=== PATIENT | male | born 1980 | race Caucasian/White ===

== ENCOUNTER 2024-12-04 07:20 | Emergency (ER) | payer OTHER, SELFPAY ==
[2024-12-04 07:24] VITALS: BP 119/65; PULSE 86; RESP 18; TEMP 36.7; O2SAT 98; BMI 23.7
[2024-12-04 08:00] LABS: COVID-19 Test Negative (Negative); IDNOW Serial# 55D5AD1C
[2024-12-04 08:01] LABS: IDNOW Serial# 58CA691E; Influenza B2 Negative (Negative)
--- OUTSIDE RECORDS SUMMARY | 2024-12-04 08:06 | XMS_ITS | Clinical Summary ---
Author Organization [facility] Address [address] [place] [address] Care Team Providers Care General Milling Superintendent Name Role Phone Sol Newsome Primary Care Provider [phone] Allergies Active Allergy Reactions Criticality Noted Date Comments Fluoxetine Other (see comments) 11/20/2021 Caused pancreatis cysts Medications QUEtiapine (SEROquel) 100 mg tablet Take 150 mg by mouth. DAILY HS 0 7 Active prazosin (MINIPRESS) 2 mg capsule Take 2 mg by mouth daily. HS/ 1-2 capsules 0 7 Active traZODone (DESYREL) 100 mg tablet Take 100 mg by mouth daily. 1-2 tablets at bedtime 0 7 Active omeprazole (PriLOSEC) 20 mg capsule Take 20 mg by mouth 3 times a day before meals. 0 7 Active NICOTROL 10 mg inhaler Inhale 10 mg by mouth. PRN [address] (CYMBALTA) 60 mg capsule Take 60 mg by mouth 2 times a day. 0 7 Active busPIRone (BUSPAR) 30 mg tablet Take 30 mg by mouth 2 times a day. 0 7 Active nicotine (NICODERM CQ) 21 mg/[address] 1 patch on the skin daily. 0 7 Active docusate sodium (COLACE) 100 mg capsuleIndications: Constipation, unspecified constipation type Take 1 capsule (100 mg total) by mouth 2 times a day for 7 days. 14 capsule 7 Active senna (SENOKOT) 8.6 mg tabletIndications:C onstipation, unspecified constipation type Take 1 tablet (8.6 mg total) by mouth 2 times a day for 7 days. 14 tablet 7 Active ondansetron (ZOFRAN ODT) 4 mg disintegrating tabletIndications:A lcohol-induced chronic pancreatitis Dissolve 1 tablet (4 mg total) in the mouth every 8 hours as needed for nausea or vomiting. 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 His last bout was in 2015, and was complicated by pseudocyst formation for which he underwent endoscopic drainage with biliary stenting at [facility] and subsequent removal of the stent on 01/[address] Clancy at [facility]. He developed recurrence of his abdominal pain one week prior to admission, and presented to an outside hospital where he was found to have a 4 x 2 x [address] scan which was partially compressing the duodenal lumen. He was transferred to [facility] for evaluation of possible cyst gastrostomy. Repeat CT A/P at [facility] found decreased size of pseudocyst and resolution of peripancreatic fluids. EUS on 01/13 found evidence of severe pancreatitis. After EUS, patient was able to resume a regular diet and pain was controlled on oral Tramadol. Patient was discharged home with small amounts of Tramadol and ODT Zofran. Patient will follow up with Dr. Shelby in 2 months and establish care at the chronic pancreatitis clinic. Constipation 01/12/2017 Assessment & Plan (01/13/2017 4:05 PM EST): On 01/12, patient reported no BM x 5 days. He reported that he was on liquid diet while at OSH and since being transferred to [facility]. Patient reported passing gas and no SBO seen on CT. He will be discharged on Colace and Senna. 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 His last bout was in 2015 was complicated by pseudocyst formation for which he underwent endoscopic drainage with biliary stenting at [facility] and subsequent removal of the stent on 01/[address] Clancy at [facility]. He developed recurrence of his abdominal pain last week, and presented to an outside hospital where he was found to have a 4 x 2 x [address] scan which was partially compressing the duodenal lumen. He was transferred to [facility] for evaluation of possible cyst gastrostomy. Repeat CT A/P at [facility] found the cyst to be only 1.4 x 1.3 x 1.1 cm, and there was no peripancreatic fluid seen. EUS completed on 01/13, but no cystogastrostomy needed given decreased size of cyst. Patient will follow up with Dr. Shelby in 2 weeks. Anxiety 01/10/2017 Assessment & Plan (01/13/2017 4:04 PM EST): Patient with well-established PTSD with anxiety for which he is on disability. He is on multiple psychiatric medications at home including: Prazosin 2 mg nightly, buspirone 30 mg twice daily, Seroquel 150 mg nightly, Cymbalta 60 mg twice daily, trazodone 100-200 mg nightly as needed insomnia. He was continued on these during admission. Family History Medical History Relation Name Comments Melanoma Brother Breast cancer Maternal Grandmother Relation Name Status Comments Brother Maternal Grandmother Social History Tobacco Use Types Packs/Day Years Used Date Smoking Tobacco: Every Day Cigarettes 1 26 Smokeless Tobacco: Never Alcohol Use Standard Drinks/Week Comments Yes 0 (1 standard drink = 0.6 oz pure alcohol) former everyday drinker, now just socially Sex and Gender Information Value Date Recorded Sex Assigned at Not on file Legal Sex Male 7:16 PM EDT Gender Identity Not on file Sexual Orientation Not on file Occupation Industry Job Start Date Job End Date on disability Not on file Not on file Not on file Last Filed Vital Signs Vital Sign Reading Time Taken Comments Blood Pressure 135/97 11/21/2021 12:01 PM EDT Pulse 60 11/21/2021 12:01 PM EDT Temperature 37 C (98.6 F) 11/21/2021 12:01 PM EDT Respiratory Rate 18 11/21/2021 12:01 PM EDT Oxygen Saturation 99% 11/21/2021 12:01 PM EDT Inhaled Oxygen Concentration - - Weight 70.3 kg (155 lb) 11/21/2021 12:01 PM EDT Height 175.3 cm (5' 9 ) 11/21/2021 12:01 PM EDT Body Mass Index 22.89 11/21/2021 12:01 PM EDT Plan of Treatment Health Maintenance Due Date Last Done Comments HIV Screening 1981 Varicella Vaccines (1 of 2 - 13+ 2-dose series) 1994 Hepatitis B Vaccines (1 of 3 - 19+ 3-dose series) 01/22/2000 Alcohol/Substance Use Screening 03/10/2024 COVID-19 Vaccine (2 - 2024- season) 2024 10/08/2020 Influenza Vaccine (#1) 2024 , 01/30/2020, 12/18/2018, Additional history exists DTaP,Tdap,and Td Vaccines (2 - Td or Tdap) 08/15/2025 08/16/2015 RSV Vaccine (60+ years old and patients) (1 - 1-dose 75+ series) 01/22/2056 Pneumococcal Vaccine: Pediatric (0-5 Years) and At-Risk Patients (6-50 Years) Aged Out 07/12/2021, 10/08/2020, 06/28/2020 No longer eligible based on patient's age to complete this topic Insurance [facility] MEDICARE Advance Directives * Full Code (Latest Code Status on File) Date Activated Date Inactivated Comments 01/13/2017 1:51 PM 01/13/2017 7:08 PM * Full Code Date Activated Date Inactivated Comments 01/10/2017 7:32 PM 01/13/2017 1:51 PM Care Teams General Milling Superintendent Relationship Specialty Start Date End Date Sol Newsome [address] [place] [address] PCP - General 11/21/21
--- OUTSIDE RECORDS SUMMARY | 2024-12-04 08:06 | XMS_ITS | Clinical Summary ---
Author Organization [facility] Address [facility] [address] [place] [id number] Care Team Providers Care Potato Bucker Name Role Phone Sol Newsome APRN Primary Care Provider [phone] Allergies No known active allergies Medications * This document contains information received from the source organization and may not represent a complete record from that organization. famotidine (Pepcid) 20 mg tablet Take 1 tablet by mouth 2 times daily. 30 tablet 023 Active cholestyramine (Questran) 4 gram Powder in Packet Take 1 packet by mouth daily as needed. Mixed w/ water or non-carbonated drink 023 Active HYDROmorphone (Dilaudid) 2 mg tablet Take 2 mg by mouth 4 times daily as needed. Breakthrough pain 023 Active mirtazapine (Remeron) 15 mg tablet Take 15 mg by mouth nightly. 020 Active Micaela Pen Needle 32 gauge x 5/32 Needle Inject 1 each subcutaneously 4 times daily. W/ each insulin injection 023 Active prazosin (Minipress) 2 mg capsule Take 4 mg by mouth nightly. 023 Active sertraline (Zoloft) 100 mg tablet Take 150 mg by mouth daily. 023 Active zolpidem (Ambien) 10 mg tablet Take 10 mg by mouth nightly. 023 Active multivitamin (THERAGRAN) Tablet Take 1 tablet by mouth daily. Centrum generic Active insulin aspart U-100 (NovoLOG) 100 unit/mL (3 mL) Insulin Pen Inject subcutaneously 3 times daily (with meals). If BG is 80-150, inject 2 units w/ low carb meal, 3 w/ medium carb meal, 5 w/ high carb meal. An add'l 1 unit for every 30 BG over 150 Active ksqxna-jssnffrh-e mylase (Creon 24) 24,000-76,000 -120,[address] capsule Take 4 capsules by mouth 3 times daily (with meals). May have in addition 2 to 3 capsules with snacks. 60 capsule 023 Active Lantus Solostar U-100 Insulin 100 unit/mL (3 mL) pen Inject 16 Units subcutaneously nightly. 10 mL 023 Active Additional Information Patient taking differently: 24 UnitsSubcutaneous NIGHTLY, Reported on 07/11/2022 prochlorperazine (Compazine) [address] 1 suppository rectally every 8 hours as needed for Nausea. 20 suppository 023 Active ondansetron ODT (Zofran-ODT) 4 mg disintegrating tablet Take 1 tablet by mouth every 8 hours as needed for Nausea. 30 tablet 023 Active naloxone (Narcan) 1 mg/mL Syringe For opioid overdose,spray 1 mL in each nostril. Repeat after 3-5 minutes if no or minimal response. Call 911 before administration. 4 mL 023 Active Miscellaneous Medical Supply [facility] Script for two intranasal mucosal atomizing devices for use with naloxone syringe. 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 His last bout was in 2015, and was complicated by pseudocyst formation for which he underwent endoscopic drainage with biliary stenting at [facility] and subsequent removal of the stent on 01/[address] Clancy at [facility]. He developed recurrence of his abdominal pain one week prior to admission, and presented to an outside hospital where he was found to have a 4 x 2 x [address] scan which was partially compressing the duodenal lumen. He was transferred to [facility] for evaluation of possible cyst gastrostomy. Repeat CT A/P at [facility] found decreased size of pseudocyst and resolution [...] at the chronic pancreatitis clinic. Constipation 01/12/2017 Overview (07/11/2022): Last Assessment & Plan: On 01/12, patient reported no BM x 5 days. He reported that he was on liquid diet while at OSH and since being transferred to [facility]. Patient reported passing gas and no SBO seen on CT. He will be discharged on Colace and Senna. Anxiety 01/10/2017 Overview (07/11/2022): Last Assessment & Plan: Patient with well-established PTSD with anxiety for which he is on disability. He is on multiple psychiatric medications at home including: Prazosin 2 mg nightly, buspirone 30 mg twice daily, Seroquel 150 mg nightly, Cymbalta 60 mg twice daily, trazodone 100-200 mg nightly as needed insomnia. He was continued on these during admission. 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 His last bout was in 2015 was complicated by pseudocyst formation for which he underwent endoscopic drainage with biliary stenting at [facility] and subsequent removal of the stent on 01/[address] Clancy at [facility]. He developed recurrence of his abdominal pain last week, and presented to an outside hospital where he was found to have a 4 x 2 x [address] scan which was partially compressing the duodenal lumen. He was transferred to [facility] for evaluation of possible cyst gastrostomy. Repeat CT A/P at [facility] found the cyst to be only 1.4 x 1.3 x 1.1 cm, and there was no peripancreatic fluid seen. EUS completed on 01/13, but no cystogastrostomy needed given decreased size of cyst. Patient will follow up with Dr. Shelby in 2 weeks. Social History Tobacco Use Types Packs/Day Years Used Date Smoking Tobacco: Every Day Cigarettes Smokeless Tobacco: Never Tobacco Cessation:Ready to Q uit: Not Asked; Counseling Given: Not Answered Alcohol Use Standard Drinks/Week Comments Not Currently 0 (1 standard drink = 0.6 oz pur e alcohol) DH IPV Inpatient Questions Answer Date Recorded Does Anyone Try to Keep You From Having Contact with Others or Doing Things Outside Your Home? no 08/07/2022 Feels Threatened by Someone no 07/10 Feels Unsafe at Home or Work/School no 08/07/2022 Physical Signs of Abuse Present no 08/07/2022 Sex and Gender Information Value Date Recorded Sex Assigned at Not on file Legal Sex Male 11:12 AM EDT Gender Identity Not on file Sexual Orientation Not on file Last Filed Vital Signs Vital Sign Reading Time Taken Comments Blood Pressure 102/65 08/19/2022 8:40 AM EDT Pulse 74 08/19/2022 8:40 AM EDT Temperature 36.5 C (97.7 F) 08/18/2022 8:46 AM EDT Respiratory Rate 17 08/19/2022 8:40 AM EDT Oxygen Saturation 99% 08/19/2022 8:40 AM EDT Inhaled Oxygen Concentration - - Weight 74.4 kg (164 lb 0.4 oz) 08/08/2022 1:29 A M EDT Height 175.3 cm (5' 9 ) 08/08/2022 1:29 AM EDT Body Mass Index 24.22 08/08/2022 1:29 AM EDT Plan of Treatment Health Maintenance Due Date Last Done Comments HIV screen 1999 Hepatitis C Screening 1999 Lipid Screening 1999 Hepatitis B vaccine (0-59 yr s) and Risk (1) 01/22/2000 Pneumococcal Vaccine: At-Ris k 5-49yrs (1 of 2 - PCV) 01/22/2000 Tetanus/Diphtheria/Pertussis Vaccines (1 - Tdap) 01/22/2000 Covid-19 Vaccine (1 - 2023-2 5 season) 2024 Influenza (Flu) vaccine (1 o f 1 - Influenza standard series) 11/08/2024 Diabetes Screening (HgbA1C o r Glucose) Discontinued 08/12/2022, 08/12/2022, 08/07/2022, Additional history exists Procedures Procedure Name Priority Date/Time Associated Diagnosis Comments HEMOGLOBIN A1C Routine 08/12/2022 3:41 PM EDT from Last 3 Months or Most Recently Relevant to Health Maintenance Results * (ABNORMAL) Hemoglobin A1c (08/12/2022 3:41 PM EDT) Hemoglobin A1c 7.8(H) 4.3 - 5.6 % [facility] Estimated Average Glucose 177 mg/dL [facility] Blood 08/12/2022 3:41 PM EDT 08/12/2022 3:44 PM EDT Narrative Resulting Agency Comment Spec In Lab us Cordelia Paulino MD CHEMISTRY ORDERABLES Final Resu lt [facility] [address] [place] [address] from Last 3 Months or Most Recently Relevant to Health Maintenance Insurance MEDICARE [place]ICAID [place] Advance Directives * Attempt Cardiopulmonary Resuscitation - Inpatient (Latest Code Status on File) Date Activated Date Inactivated Comments 06/16/2022 10:22 PM 06/18/2022 4:16 PM Question Answer Comments Code Status decision made by: Patient Care Teams Potato Bucker Relationship Specialty Start Date End Date Sol Newsome APRN [address] [place] [id number] PCP - General Family Medicine 05/28/22
--- OUTSIDE RECORDS SUMMARY | 2024-12-04 08:07 | XMS_ITS | Encounter Summary ---
Author Organization [employer] Address [address] [facility] [address] [place] [address] Care Team Providers Care Wallpaper Scraper Name Role Phone Unavailable Primary Care Provider Unavailabl e Reason for Visit * Reason Onset Date Comments status on case at lab 11/24/2023 Encounter Details Date Type Department Care Team (Late st Contact Info) Description 11/24/2023 Telephone [facility] [address] [place], [place] [phone] Ricardo Reyna BDS [address] [place], [place] [phone] status on case at lab Social History Tobacco Use Types Packs/Day Years Used Date Smoking Tobacco: Every Day Cigarettes Smokeless Tobacco: Never Sex and Gender Information Value Date Recorded Sex Assigned at Male 05/23/2023 12:47 PM EDT Legal Sex Male 12:42 PM EDT Gender Identity Male 05/23/2023 12:47 PM EDT Sexual Orientation Choose not to disclose 2023 12:47 PM EDT documented as of this encounter Miscellaneous Notes * Telephone Encounter - Zully Escobedo - 11/26/2023 1:17 PM EDT This message was sent to Dr. Flaherty and addressed to him, Patient verifying status of case of back from lab Dr. Flaherty. * Telephone Encounter - Michael Kaplan DMD - 11/25/2023 7:56 AM EDT Please follow up with Dr. Flaherty * Telephone Encounter - Zully Escobedo - 11/24/2023 4:13 PM EDT Patient is checking in on the status of case at lab. Please reach out to patient documented in this encounter Plan of Treatment Not on file documented as of this encounter Visit Diagnoses Not on filedocumented in this encounter
--- OUTSIDE RECORDS SUMMARY | 2024-12-04 08:07 | XMS_ITS | Encounter Summary ---
Author Organization [employer] Address [address] [facility] [address] [place] [address] Care Team Providers Care Tool Distributor Name Role Phone Unavailable Primary Care Provider Unavailabl e Reason for Visit * Reason Onset Date Comments stictch removal 08/13/2023 Encounter Details Date Type Department Care Team (Late st Contact Info) Description 08/13/2023 Telephone [facility] [address] [place], [place] [phone] Ricardo Reyna BDS [address] [place], [place] [phone] stictch removal Social History Tobacco Use Types Packs/Day Years [...] * Telephone Encounter - Zully Escobedo - 08/13/2023 3:19 PM EDT Patient states that after his ext appt today he was told that he needs to come back on Friday to remove stitches. He is unsure if he is just walking in or if he needs to be scheduled. Can you pls reach out to patient to clarify. Email also sent to frontload driver documented in this encounter Plan of Treatment Not on file documented as of this encounter Visit Diagnoses Not on filedocumented in this encounter
--- OUTSIDE RECORDS SUMMARY | 2024-12-04 08:08 | XMS_ITS | Clinical Summary ---
Author Organization [facility] Address [address] [facility] [address] [place] [address] Care Team Providers Care Foot Worker Name Role Phone Unavailable Primary Care Provider Unavailabl e Allergies Active Allergy Reactions Criticality Noted Date Comments Varenicline 07/15/2023 Fluoxetine 07/15/2023 Medications ARIPiprazole (Abilify) 2 MG tablet Take 2 mg by mouth Once per day. 4 Active prazosin (Minipress) 1 MG capsule TAKE 1 CAPSULE BY MOUTH EVERY DAY IN THE MORNING 4 Active prazosin (Minipress) 5 MG capsule TAKE 1 CAPSULE BY MOUTH EVERYDAY AT BEDTIME 4 Active magnesium oxide (Mag-Ox) 400 MG tablet TAKE 2 TABS BY MOUTH AM AND 1 TAB BY MOUTH PM 4 Active ergocalciferol (Vitamin D2) 1.25 MG (87948 UT) capsule TAKE 2 CAPSULES (100,000) UNITS BY MOUTH ONCE WEEKLY 4 Active mirtazapine (Remeron) 15 MG tablet Take 15 mg by mouth at bedtime. Active Creon 73046-92516 units capsule TAKE 3 CAPSULES BY MOUTH 3 TIMES A DAY WITH MEALS Active Buprenorphine HCl-Naloxone HCl (Suboxone) 8-[address] 1 FILM EVERY DAY BY SUBLINGUAL ROUTE FOR 28 DAYS. 4 Active Fiasp FlexTouch 100 UNIT/ML injection UP TO 42 UNITS SUBCUTANEOUS TOTAL DAILY IN DIVIDED DOSES FOR MEALS AND HIGH SUGARS 4 Active Social History Tobacco Use Types Packs/Day Years Used Date Smoking Tobacco: Every Day Cigarettes Smokeless Tobacco: Never Tobacco Cessation:Ready to Q uit: Not Asked; Counseling Given: Not Answered Sex and Gender Information Value Date Recorded Sex Assigned at Male 05/23/2023 12:47 PM EDT Legal Sex Male 12:42 PM EDT Gender Identity Male 05/23/2023 12:47 PM EDT Sexual Orientation Choose not to disclose 2023 12:47 PM EDT Last Filed Vital Signs Vital Sign Reading Time Taken Comments Blood Pressure 118/68 11/25/2023 1:03 PM EDT Pulse 2 11/25/2023 1:03 PM EDT Temperature - - Respiratory Rate - - Oxygen Saturation - - Inhaled Oxygen Concentration - - Weight - - Height - - Body Mass Index - - Plan of Treatment Health Maintenance Due Date Last Done Comments Dental Prophylaxis 1981 Dental X-Ray: Bitewings 1981 Depression Screening 1981 HIV Screening 1981 Lipid Panel 1981 SDOH Screening 1981 Disability Screening 1981 Alcohol/Substance Use Screening 1993 Family Planning (PISQ) 01/22/1996 HPV Vaccines (1 - Male 3-dose series) 01/22/1996 Hepatitis C Screening 1999 Hepatitis B Vaccines (2 of 3 - 19+ 3-dose series) 07/26/2020 06/28/2020 Dental Oral Exam 01/16/2024 07/15/2023 COVID-19 Vaccine (3 - season) 2024 04/10/2021, 10/08/2020 Influenza Vaccine (#1) 2024 , 11/26/2022, 12/07/2021, Additional history exists Tobacco Screening 11/24/2024 11/25/2023 DTaP/Tdap/Td Vaccines (2 - Td or Tdap) 08/15/2025 08/16/2015 Dental X-Ray: Full Mouth 07/15/2026 07/15/2023 Pneumococcal Vaccine: Pediatrics (0 to 5 Years) and At-Risk Patients (6 to 49) Years (3 of 3 - PCV20 or PCV21) 2031 07/12/2021, 10/08/2020, 06/28/2020 Zoster Vaccines (1 of 2) 2031 RSV Patients and Patients Aged 60 years or older (1 - 1-dose 75+ series) 01/22/2056 HIB Vaccines Aged Out 10/05/2020 No longer eligi ble based on patient's age to complete this topic Meningococcal B Vaccine Aged Out 10/07/2020, 06/28 No longer eligible based on patient's age to complete this topic Meningococcal Vaccine Aged Out 10/07/2020, 021 No longer eligible based on patient's age to complete this topic Hepatitis A Vaccines Aged Out No long er eligible based on patient's age to complete this topic IPV Vaccines Aged Out No longer eligi ble based on patient's age to complete this topic RSV under 20 months Aged Out No longe r eligible based on patient's age to complete this topic Rotavirus Vaccines Aged Out No longer eligible based on patient's age to complete this topic Procedures Procedure Name Priority Date/Time Associated Diagnosis Comments PANORAMIC RADIOGRAPHIC IMAGE Routine 07/15/2023 1:00 PM EDT COMPREHENSIVE ORAL EVALUATION - NEW OR ESTABLISHED PATIENT Routine 07/15/2023 1:00 PM EDT from Last 3 Months or Most Recently Relevant to Health Maintenance Insurance [facility]
--- NOTE | 2024-12-04 09:02 | ED.URI ---
HPI - URI/Sore Throat General Chief Complaint: Upper Respiratory Symptoms Stated Complaint: congestion Time Seen by Provider: 12/04/24 07:48 Related Data Previous Rx's ?Medication ?Instructions ?Recorded amoxicillin 500 mg capsule 1,000 mg (2 x 500 mg) PO TID 5 12/04/24 days #30 caps doxycycline hyclate 100 mg tablet 100 mg PO Q12H 5 days #10 tabs 12/04/24 Allergies Allergy/AdvReac Type Severity Reaction Status Date / Time fluoxetine (From Prozac) AdvReac Stomach Verified 12/04/24 07:28 Upset varenicline (From Chantix) AdvReac Stomach Verified 12/04/24 07:28 Upset PMFSH Social History Social History Advance Directives: Yes Advance Directives Information Provided: No Advance Directives on File: No Physical Exam Vital Signs: Vital Signs: Last Vital Signs Temp 98.0 F 12/04/24 07:24 Pulse 86 12/04/24 07:24 Resp 18 12/04/24 07:24 BP 119/65 12/04/24 07:24 Pulse Ox 98 12/04/24 07:24 O2 Del Method Room Air 12/04/24 07:24 BMI result Body Mass Index 23.7 Medical Decision Making Lab Data Labs: Lab Results 12/04/24 Range/Units 07:33 COVID-19 (FREDRICK) Negative (Negative) COVID-19 Clin Com See Note Influenza Type A (HERMES) Negative (Negative) Influenza Type B (HERMES) Negative (Negative) Influenza A & B Note See Note Discharge Plan Discharge Clinical Impression: Upper respiratory infection, H/O splenectomy Patient Disposition: Home, Self-Care Instructions: Acute Bronchitis (ED) Additional Instructions: Your COVID 19 and influenza tests were negative. Your symptoms may be secondary to a viral infection in your body will fight this virus off in you will get better. However, I am also concerned that you may have a bacterial infection causing your symptoms. Given your splenectomy, I do want to treat you like you have early pneumonia with antibiotics. Take amoxicillin 500 mg pills, 2 pills, every 6 hours (3 times a day) for 5 days. Take doxycycline 100 mg, 1 pill every 12 hours for 5 days Take Benadryl (diphenhydramine) 25 mg pills, 2 pills 3 times a day as needed for nasal congestion-this medication will make you sleepy so try to take it at night. Take ibuprofen 200 mg pills, 2 pills every 6 hours as needed for pain or fever. Take Tylenol (acetaminophen) 500 mg pills, 2 pills every 6 hours as needed for pain or fever. Follow-up with your doctor in 2 days. Please return to the emergency department if your symptoms get worse or if you develop any symptoms that are concerning to you. Prescriptions: New amoxicillin 500 mg capsule 1,000 mg PO TID 5 Days Qty: 30 0RF doxycycline hyclate 100 mg tablet 100 mg PO Q12H 5 Days Qty: 10 0RF Print Language: Citizen Of [place]
[2024-12-04 09:32] VITALS: BP 125/63; PULSE 82; RESP 18; TEMP 36.7; O2SAT 98
== END 2024-12-04 09:32 | disposition home or self-care (01) ==
PROVIDERS: Emergency Provider Emergency Medicine Emergency Medical Services; PCP Nurse Practitioner Family
DX: J20.9 Acute bronchitis, unspecified (principal)
CPT/HCPCS: 87502; 87635; 99282; 99283

== ENCOUNTER 2025-01-17 00:37 | Emergency (ER) | payer OTHER, SELFPAY ==
--- NOTE | ~2025-01-17 | XR_ITS ---
EXAMINATION: XR CHEST CLINICAL INFORMATION: cough, chest pain COMPARISON: March 15, 2011 is not available on PACS. TECHNIQUE: PA and lateral views. FINDINGS: No consolidation, pleural effusion or pneumothorax. Mild pulmonary reticular pattern. Cardiomediastinal silhouette size is normal. Mild multilevel thoracic and lumbar spondylosis. XR/XR chest 2V IMPRESSION: No acute airspace disease. Chronic interstitial lung disease cannot be excluded. Electronically signed by: Osbaldo Bojorquez MD 01/17/2025 08:33 AM EST
--- NOTE | 2025-01-17 00:45 | ECG_ITS ---
Test Reason : DKA Blood Pressure : */* mmHG Vent. Rate : 107 BPM Atrial Rate : 107 BPM P-R Int : 160 ms QRS Dur : 86 ms QT Int : 358 ms P-R-T Axes : 30 12 35 degrees QTcB Int : 477 ms Sinus tachycardia Cannot rule out Anterior infarct , age undetermined Abnormal ECG No previous ECGs available Referred By: Generic ED Physician Electronically Signed By: THOMAS NEELY MD
[2025-01-17 00:48] VITALS: BP 138/89; PULSE 82; RESP 14; TEMP 36.6; O2SAT 99; BMI 29.3
[2025-01-17 01:00] LABS: Glucose, Whole Blood 517 mg/dL (60-115)
[2025-01-17 01:10] LABS: Venous Blood Gas Refer to POC result
[2025-01-17 01:12] LABS: Hematocrit 40.7 % (42.0-52.0); Hemoglobin 13.5 g/dl (14.0-18.0); Imm Gran Abs Auto 0.08 X10*3/uL (0.00-0.03); Imm Gran Pct Auto 0.4 % (0.0-0.4); Lymphocytes Absolute Auto 3.1 X10*3/uL (1.2-4.9); MANUAL DIFF FLAG SCAN; Mean Corpuscular HGB Conc 33.2 g/dl (31.0-36.0); Mean Corpuscular Hemoglobin 30.2 pg (27.0-33.0); Mean Corpuscular Volume 91.1 fL (80.0-98.0); NRBC Abs Auto 0.000 X10*3/uL (0.0-0.012); NRBC Pct Auto 0.0 /100WBC (0.0-0.2); Platelet Count 254 X10*3/uL (160-400); Red Blood Count 4.47 X10*6/uL (4.60-5.80); SCAN SMEAR FLAG 1; White Blood Count 18.7 X10*3/uL (4.8-10.8)
[2025-01-17 01:30] LABS: Alanine Aminotransferase 29 U/L (0-40); Albumin Level 4.5 g/dL (3.5-5.0); Alkaline Phosphatase 105 U/L (39-117); Anion Gap 23 (12-20); Aspartate Amino Transferase 43 U/L (5-37); Blood Urea Nitrogen 13 mg/dL (9-16); Calcium 10.7 mg/dL (8.4-10.2); Carbon Dioxide 20 mmol/L (22-29); Chloride 97 mmol/L (96-108); Creatinine Clr Calc Pharmacy 91.9; Estimated Glomerular Filt Rate > 60; Magnesium 1.6 mg/dL (1.6-2.6); Potassium 4.7 mmol/L (3.3-5.1); Sodium 135 mmol/L (135-145); Total Protein 8.0 g/dL (6.5-8.0)
[2025-01-17 01:32] LABS: VBG HCO3 21 mmol/L (22-26); VBG O2 % Saturation 94.0 %
[2025-01-17 01:33] LABS: Troponin-I High Sensitivity < 2.7 ng/L (<3.5-35.0)
[2025-01-17 02:03] LABS: Glucose, Whole Blood 499 mg/dL (60-115)
[2025-01-17 02:06] LABS: Appearance Urine Clear; Glucose Urine UA >=1000 mg/dL (Negative); PH 5.5 (5.0-9.0); Specific Gravity - Urine >= 1.030 (1.005-1.025); UMIC TRIGGER UACC YES
[2025-01-17 02:49] LABS: Anion Gap 25 (12-20); Blood Urea Nitrogen 13 mg/dL (9-16); Calcium 10.5 mg/dL (8.4-10.2); Carbon Dioxide 18 mmol/L (22-29); Chloride 98 mmol/L (96-108); Creatinine Clr Calc Pharmacy 94.3; Estimated Glomerular Filt Rate > 60; Potassium 4.5 mmol/L (3.3-5.1); Sodium 136 mmol/L (135-145)
[2025-01-17 02:56] LABS: Glucose, Whole Blood 483 mg/dL (60-115)
[2025-01-17] MEDS: Insulin Regular/NS 100 UNIT/100 ML PLAST..BAG 9 UNIT IVCONT (02:56)
[2025-01-17 03:06] VITALS: BP 122/72; PULSE 80; RESP 18; RESP 22; O2SAT 97
[2025-01-17] MEDS: Magnesium Sulfate/H2O 2 GM/50 ML PIGGYBACK IV (03:43)
[2025-01-17 04:07] LABS: Glucose, Whole Blood 295 mg/dL (60-115)
--- NOTE | 2025-01-17 04:09 | PC.NURSE ---
bg dropped to 290. Infusion decreased by 50% as per protocol. Verified and co-signed by JAREN Colunga
[2025-01-17 05:03] LABS: Glucose, Whole Blood 194 mg/dL (60-115)
--- NOTE | 2025-01-17 05:11 | PC.NURSE ---
BG decreased >100, 295 to 194. infusion decreased by 50%- 2.25mls/hr.
[2025-01-17 06:07] LABS: Anion Gap 17 (12-20); Blood Urea Nitrogen 12 mg/dL (9-16); COVID-19 Test Negative (Negative); Calcium 10.0 mg/dL (8.4-10.2); Carbon Dioxide 21 mmol/L (22-29); Chloride 107 mmol/L (96-108); Creatinine Clr Calc Pharmacy 105.7; Estimated Glomerular Filt Rate > 60; IDNOW Serial# 55D5AD1C; IDNOW Serial# 58CA691E; Influenza B2 Negative (Negative); Potassium 4.3 mmol/L (3.3-5.1); Sodium 141 mmol/L (135-145)
[2025-01-17 06:29] LABS: Glucose, Whole Blood 109 mg/dL (60-115)
--- NOTE | 2025-01-17 06:59 | ED.NAVMDI ---
HPI - Nausea/Vomiting/Diarrhea General Chief complaint: Nausea/Vomiting/Diarrhea Stated complaint: N/V, BS 487 PER EMS Time Seen by Provider: 01/17/25 01:31 Source: patient, EMS, RN notes reviewed and old records reviewed Mode of arrival: EMS Limitations: no limitations History of Present Illness ED Provider: Dr. Eileen Martins HPI Narrative: 44-year-old male with a history of insulin-dependent diabetes, status post splenectomy and pancreatectomy presenting with epigastric abdominal pain, nausea and vomiting ongoing since about 8 p.m. yesterday. Describes elevated blood sugars greater than 500 which is unusual for him. He does have an insulin pump and has been using it appropriately. Feels as though he has been unable to get his blood sugar controlled over the last 24 hours. No reported fever though he admits he rarely gets a fever after splenectomy. Denies hematochezia, hematemesis, dysuria or hematuria, testicular pain or swelling. No skin changes. Admits to a cough that is productive of yellow sputum which has been ongoing for the last several weeks, lingering after he was treated for pneumonia about 5 weeks ago. Related Data Previous Rx's ?Medication ?Instructions ?Recorded amoxicillin 500 mg capsule 1,000 mg (2 x 500 mg) PO TID 5 12/04/24 days #30 caps doxycycline hyclate 100 mg tablet 100 mg PO Q12H 5 days #10 tabs 12/04/24 amoxicillin 875 mg-potassium 1 tab PO BID 10 days #20 tabs 01/17/25 clavulanate 125 mg tablet dicyclomine 20 mg tablet 20 mg PO TID #10 tabs 01/17/25 doxycycline monohydrate 100 mg 100 mg PO BID 10 days #20 caps 01/17/25 capsule ondansetron 4 mg disintegrating 4 mg PO Q8H PRN nausea and 01/17/25 tablet vomiting #10 tabs Allergies Allergy/AdvReac Type Severity Reaction Status Date / Time fluoxetine (From Prozac) AdvReac Stomach Verified 01/17/25 00:50 Upset varenicline (From Chantix) AdvReac Stomach Verified 01/17/25 00:50 Upset Review of Systems Review of Systems: as per HPI, full review of systems performed and negative but for the above mentioned pertinent positives and negatives. [facility] Social History Social History Smoked in Last 30 Days: No Use of substances other than those prescribed or required for medical reasons: Yes Substance Use Type: Marijuana Advance Directives: No Advance Directives Information Provided: No Do you have a plan to hurt others: No Plan Physical Exam Exam: Exam: GENERAL: Ill-Appearing, appears uncomfortable. SKIN: Normal skin color for ethnicity, warm, dry, no rashes noted. HEENT:? Normocephalic, atraumatic, no stridor, dry mucous membranes, dentition intact, EOMI. NECK: Soft, supple, full ROM, midline structures nontender, no step-offs, no deformities, no lymphadenopathy. CHEST: Heart regular tachycardia, no murmurs, symmetric chest rise and fall. PULMONARY: Clear to auscultation bilaterally, diminished at the bases, no labored breathing, no wheezes/rhales/rhonchi. ABDOMINAL: Soft, nondistended, epigastric tenderness to palpation without rebound or guarding, positive bowel sounds in all quadrants. : Deferred. MUSCULOSKELETAL: Normal tone, full range of motion, no deformities, no peripheral edema. NEURO: Alert and oriented x3, CN II through XII intact, equal strength and sensation bilateral upper and lower extremities, no focal neurologic deficits.? PSYCHIATRIC: Flat affect, fluid speech, good eye contact and appropriate demeanor. Vital Signs: Vital Signs: Last Vital Signs Temp 97.8 F 01/17/25 00:48 Pulse 88 01/17/25 07:56 Resp 16 01/17/25 07:56 BP 115/57 L 01/17/25 07:56 Pulse Ox 95 01/17/25 07:56 O2 Del Method Room Air 01/17/25 07:56 BMI result Body Mass Index 29.3 Medications Administered Discontinued Medications Generic Name Dose Route Start Last Admin Trade Name Freq PRN Reason Stop Dose Admin Haloperidol Lactate 2.5 mg 01/17/25 03:31 01/17/25 03:42 Haloperidol Lactate 5 Mg/Ml Vial IVPUSH 01/17/25 03:32 2.5 mg STAT STA Administration Hydromorphone HCl 1 mg 01/17/25 03:31 01/17/25 03:42 Hydromorphone Hcl 1 Mg/Ml Syringe IVPUSH 01/17/25 03:32 1 mg ONCE ONE Administration Protocol Sodium Chloride 1,000 mls @ 999 mls/hr 01/17/25 01:30 01/17/25 03:43 Ns IV 01/17/25 03:30 Infused .Q1H1M OIRON Infusion Lactated Ringer's 1,000 mls @ 999 mls/hr 01/17/25 01:36 01/17/25 02:56 Lr IV 01/17/25 02:36 Not Given .Q1H1M ONE Magnesium Sulfate 2 gm in 50 mls @ 25 mls/hr 01/17/25 01:36 01/17/25 04:50 Magnesium Sulfate/H2o IV 01/17/25 03:35 Infused ONCE ONE Infusion Insulin Human Regular 100 unit in 100 mls @ 9 mls/hr 01/17/25 01:45 01/17/25 07:39 Myxredlin IVCONT Infused .Q11H7M ORION Titration Protocol 9 UNIT/HR Morphine Sulfate 4 mg 01/17/25 01:17 01/17/25 01:37 Morphine Sulfate 4 Mg/Ml Cartridge IVPUSH 01/17/25 01:18 4 mg ONCE ONE Administration Protocol Ondansetron HCl 4 mg 01/17/25 01:17 01/17/25 01:38 Ondansetron Hcl 4 Mg/2 Ml Vial IVPUSH 01/17/25 01:18 4 mg ONCE ONE Administration Medical Decision Making Medical Decision Making MDM Narrative: Patient presents today with a chief complaint of vomiting. Differential diagnosis includes surgical emergency such as obstruction or enteritis, as well as hyperglycemia/DKA, acidosis, food or drug ingestion, pancreatitis, CVA, allergic reaction such as anaphylaxis, cannabis hyperemesis syndrome or cyclic vomiting syndrome, among many others. Patient is not showing signs of acute dehydration or hemodynamic instability. They are having associated abdominal pain. Blood sugars are significantly elevated, suggesting potential DKA with this type 1 diabetic. Broad-based work-up was initiated based on above history and physical exam. PH is 7.44, pCO2 of 30. Metabolic acidosis with respiratory compensation. He has a slightly elevated beta hydroxybutyrate and an anion gap of 23. We will initiate insulin drip for DKA protocol. Medicated with Zofran and morphine initially, patient continues to have nausea and vomiting as well as epigastric abdominal pain. We will medicate with Haldol, Dilaudid, further any fluids. Magnesium is significantly decreased. Repleted IV. Patient reports improvement of nausea and vomiting after Dilaudid and Haldol. His blood sugar has dropped precipitously. Awaiting repeat chemistries. He has a continuous glucose monitor and reports a blood sugar in the 150s now. Patient's gap has closed, electrolytes remained stable. Patient is tolerating oral intake here in the emergency department without issue. He did mention that his cough has been lingering and he is worried that he might have continued pneumonia. Given his significant history, elevation of his white blood cell count which I initially had contributed to volume contraction with his vomiting and demargination, however, we will add on a chest x-ray to evaluate for this further. He is otherwise significantly improved and feeling much better. COVID and flu swabs are negative. Urinalysis does not show evidence of infection. Chest x-ray does not show significant infiltrate however, given the patient's asplenia, elevated white blood cell count, we will treat as pneumonia. Given Augmentin and doxycycline. Provided with a prescriptions for same at home. We had an extensive discussion regarding strict return precautions, low threshold for return with worsening symptoms, follow up with outpatient primary care and endocrinology. Patient understands and agrees with plan for discharge. Discharged home in stable and improved condition. Differential Diagnosis Differential Diagnoses: The differential diagnosis associated with the presentation includes (As above) Admission/Observation Consideration of admission/observation: Escalation of care including admission/observation considered Lab Data MDM Lab Attestation statement: I reviewed the patient's lab results. 01/17/25 01:05 01/17/25 05:46 Labs: Lab Results 01/17/25 01/17/25 01/17/25 Range/Units 00:45 01:05 01:10 WBC 18.7 H (4.8-10.8) X10*3/uL RBC 4.47 L (4.60-5.80) X10*6/uL Hgb 13.5 L (14.0-18.0) g/dl Hct 40.7 L (42.0-52.0) % MCV 91.1 (80.0-98.0) fL MCH 30.2 (27.0-33.0) pg MCHC 33.2 (31.0-36.0) g/dl RDW 13.3 (11.0-16.0) % Plt Count 254 (160-400) X10*3/uL MPV 10.3 (9.4-12.4) fL Immature Gran % (Auto) 0.4 (0.0-0.4) % Neut % (Auto) 73.7 H (45-73) % Lymph % (Auto) 16.5 L (20-40) % [place] % (Auto) 8.3 (2-11) % Eos % (Auto) 0.6 (0-4) % Baso % (Auto) 0.5 (0-2) % Lymph # (Auto) 3.1 (1.2-4.9) X10*3/uL [place] # (Auto) 1.5 H (0.1-1.2) X10*3/uL Eos # (Auto) 0.1 (0.0-0.4) X10*3/uL Baso # (Auto) 0.1 (0.0-0.2) X10*3/uL Abs Immat Gran (auto) 0.08 H (0.00-0.03) X10*3/uL Absolute Neuts (auto) 13.8 H (2.0-8.3) x10*3/uL Absolute Nucleated RBC 0.000 (0.0-0.012) X10*3/uL Nucleated RBC % (auto) 0.0 (0.0-0.2) /100WBC Smear Tech's Comments VERIFIED VBG pH 7.44 H (7.32-7.43) VBG pCO2 30 mmHg VBG pO2 65 mmHg VBG HCO3 21 L (22-26) mmol/L VBG O2 Saturation 94.0 % VBG Base Excess -1.8 mmol/L Sodium 135 (135-145) mmol/L Potassium 4.7 (3.3-5.1) mmol/L Chloride 97 (96-108) mmol/L Carbon Dioxide 20 L (22-29) mmol/L Anion Gap 23 H (12-20) BUN 13 (9-16) mg/dL Creatinine 1.15 (0.5-1.4) mg/dL Estim Creat Clear Calc 91.9 Estimated GFR > 60 POC Glucose 517 H* (60-115) mg/dL Random Glucose 536 H* (60-115) mg/dL Calcium 10.7 H (8.4-10.2) mg/dL Magnesium 1.6 (1.6-2.6) mg/dL Total Bilirubin 0.7 (0.0-1.0) mg/dL AST 43 H (5-37) U/L ALT 29 (0-40) U/L Alkaline Phosphatase 105 (39-117) U/L Troponin I High Sens < 2.7 (<3.5-35.0) ng/L Total Protein 8.0 (6.5-8.0) g/dL Albumin 4.5 (3.5-5.0) g/dL Beta-Hydroxybutyrate 0.42 H (0.02-0.27) mmol/L Urine Color Urine Appearance Urine pH (5.0-9.0) Ur Specific [place] (1.005-1.025) Urine Protein (Neg-Trace) mg/dL Urine Glucose (UA) (Negative) mg/dL Urine Ketones (Negative) mg/dL Urine Blood (Negative) Urine Nitrite (Negative) Ur Leukocyte Esterase (Negative) Urine RBC (0-2) /HPF Urine WBC (0-5) /HPF Ur Squamous Epith Cells (0-2) /HPF Urine Bacteria (None Seen) Hyaline Casts (0-2) /LPF COVID-19 (FREDRICK) (Negative) COVID-19 Clin Com Influenza Type A (HERMES) (Negative) Influenza Type B (HERMES) (Negative) Influenza A & B Note 01/17/25 01/17/25 01/17/25 Range/Units 01:48 01:57 02:52 WBC (4.8-10.8) X10*3/uL RBC (4.60-5.80) X10*6/uL Hgb (14.0-18.0) g/dl Hct (42.0-52.0) % MCV (80.0-98.0) fL MCH (27.0-33.0) pg MCHC (31.0-36.0) g/dl RDW (11.0-16.0) % Plt Count (160-400) X10*3/uL MPV (9.4-12.4) fL Immature Gran % (Auto) (0.0-0.4) % Neut % (Auto) (45-73) % Lymph % (Auto) (20-40) % [place] % (Auto) (2-11) % Eos % (Auto) (0-4) % Baso % (Auto) (0-2) % Lymph # (Auto) (1.2-4.9) X10*3/uL [place] # (Auto) (0.1-1.2) X10*3/uL Eos # (Auto) (0.0-0.4) X10*3/uL Baso # (Auto) (0.0-0.2) X10*3/uL Abs Immat Gran (auto) (0.00-0.03) X10*3/uL Absolute Neuts (auto) (2.0-8.3) x10*3/uL Absolute Nucleated RBC (0.0-0.012) X10*3/uL Nucleated RBC % (auto) (0.0-0.2) /100WBC Smear Tech's Comments VBG pH (7.32-7.43) VBG pCO2 mmHg VBG pO2 mmHg VBG HCO3 (22-26) mmol/L VBG O2 Saturation % VBG Base Excess mmol/L Sodium 136 (135-145) mmol/L Potassium 4.5 (3.3-5.1) mmol/L Chloride 98 (96-108) mmol/L Carbon Dioxide 18 L (22-29) mmol/L Anion Gap 25 H (12-20) BUN 13 (9-16) mg/dL Creatinine 1.12 (0.5-1.4) mg/dL Estim Creat Clear Calc 94.3 Estimated GFR > 60 POC Glucose 499 H* 483 H* (60-115) mg/dL Random Glucose 510 H* (60-115) mg/dL Calcium 10.5 H (8.4-10.2) mg/dL Magnesium (1.6-2.6) mg/dL Total Bilirubin (0.0-1.0) mg/dL AST (5-37) U/L ALT (0-40) U/L Alkaline Phosphatase (39-117) U/L Troponin I High Sens (<3.5-35.0) ng/L Total Protein (6.5-8.0) g/dL Albumin (3.5-5.0) g/dL Beta-Hydroxybutyrate (0.02-0.27) mmol/L Urine Color Yellow Urine Appearance Clear Urine pH 5.5 (5.0-9.0) Ur Specific [place] >= 1.030 H (1.005-1.025) Urine Protein Negative (Neg-Trace) mg/dL Urine Glucose (UA) >=1000 H (Negative) mg/dL Urine Ketones Trace (Negative) mg/dL Urine Blood Negative (Negative) Urine Nitrite Negative (Negative) Ur Leukocyte Esterase Negative (Negative) Urine RBC 0-2 (0-2) /HPF Urine WBC 0-5 (0-5) /HPF Ur Squamous Epith Cells 0-2 (0-2) /HPF Urine Bacteria None Seen (None Seen) Hyaline Casts 0-2 (0-2) /LPF COVID-19 (FREDRICK) (Negative) COVID-19 Clin Com Influenza Type A (HERMES) (Negative) Influenza Type B (HERMES) (Negative) Influenza A & B Note 01/17/25 01/17/25 01/17/25 Range/Units 04:03 04:59 05:46 WBC (4.8-10.8) X10*3/uL RBC (4.60-5.80) X10*6/uL Hgb (14.0-18.0) g/dl Hct (42.0-52.0) % MCV (80.0-98.0) fL MCH (27.0-33.0) pg MCHC (31.0-36.0) g/dl RDW (11.0-16.0) % Plt Count (160-400) X10*3/uL MPV (9.4-12.4) fL Immature Gran % (Auto) (0.0-0.4) % Neut % (Auto) (45-73) % Lymph % (Auto) (20-40) % [place] % (Auto) (2-11) % Eos % (Auto) (0-4) % Baso % (Auto) (0-2) % Lymph # (Auto) (1.2-4.9) X10*3/uL [place] # (Auto) (0.1-1.2) X10*3/uL Eos # (Auto) (0.0-0.4) X10*3/uL Baso # (Auto) (0.0-0.2) X10*3/uL Abs Immat Gran (auto) (0.00-0.03) X10*3/uL Absolute Neuts (auto) (2.0-8.3) x10*3/uL Absolute Nucleated RBC (0.0-0.012) X10*3/uL Nucleated RBC % (auto) (0.0-0.2) /100WBC Smear Tech's Comments VBG pH (7.32-7.43) VBG pCO2 mmHg VBG pO2 mmHg VBG HCO3 (22-26) mmol/L VBG O2 Saturation % VBG Base Excess mmol/L Sodium 141 (135-145) mmol/L Potassium 4.3 (3.3-5.1) mmol/L Chloride 107 (96-108) mmol/L Carbon Dioxide 21 L (22-29) mmol/L Anion Gap 17 (12-20) BUN 12 (9-16) mg/dL Creatinine 1.00 (0.5-1.4) mg/dL Estim Creat Clear Calc 105.7 Estimated GFR > 60 POC Glucose 295 H 194 H (60-115) mg/dL Random Glucose 151 H (60-115) mg/dL Calcium 10.0 (8.4-10.2) mg/dL Magnesium (1.6-2.6) mg/dL Total Bilirubin (0.0-1.0) mg/dL AST (5-37) U/L ALT (0-40) U/L Alkaline Phosphatase (39-117) U/L Troponin I High Sens (<3.5-35.0) ng/L Total Protein (6.5-8.0) g/dL Albumin (3.5-5.0) g/dL Beta-Hydroxybutyrate (0.02-0.27) mmol/L Urine Color Urine Appearance Urine pH (5.0-9.0) Ur Specific [place] (1.005-1.025) Urine Protein (Neg-Trace) mg/dL Urine Glucose (UA) (Negative) mg/dL Urine Ketones (Negative) mg/dL Urine Blood (Negative) Urine Nitrite (Negative) Ur Leukocyte Esterase (Negative) Urine RBC (0-2) /HPF Urine WBC (0-5) /HPF Ur Squamous Epith Cells (0-2) /HPF Urine Bacteria (None Seen) Hyaline Casts (0-2) /LPF COVID-19 (FREDRICK) Negative (Negative) COVID-19 Clin Com See Note Influenza Type A (HERMES) Negative (Negative) Influenza Type B (HERMES) Negative (Negative) Influenza A & B Note See Note 01/17/25 01/17/25 Range/Units 06:26 07:51 WBC (4.8-10.8) X10*3/uL RBC (4.60-5.80) X10*6/uL Hgb (14.0-18.0) g/dl Hct (42.0-52.0) % MCV (80.0-98.0) fL MCH (27.0-33.0) pg MCHC (31.0-36.0) g/dl RDW (11.0-16.0) % Plt Count (160-400) X10*3/uL MPV (9.4-12.4) fL Immature Gran % (Auto) (0.0-0.4) % Neut % (Auto) (45-73) % Lymph % (Auto) (20-40) % [place] % (Auto) (2-11) % Eos % (Auto) (0-4) % Baso % (Auto) (0-2) % Lymph # (Auto) (1.2-4.9) X10*3/uL [place] # (Auto) (0.1-1.2) X10*3/uL Eos # (Auto) (0.0-0.4) X10*3/uL Baso # (Auto) (0.0-0.2) X10*3/uL Abs Immat Gran (auto) (0.00-0.03) X10*3/uL Absolute Neuts (auto) (2.0-8.3) x10*3/uL Absolute Nucleated RBC (0.0-0.012) X10*3/uL Nucleated RBC % (auto) (0.0-0.2) /100WBC Smear Tech's Comments VBG pH (7.32-7.43) VBG pCO2 mmHg VBG pO2 mmHg VBG HCO3 (22-26) mmol/L VBG O2 Saturation % VBG Base Excess mmol/L Sodium (135-145) mmol/L Potassium (3.3-5.1) mmol/L Chloride (96-108) mmol/L Carbon Dioxide (22-29) mmol/L Anion Gap (12-20) BUN (9-16) mg/dL Creatinine (0.5-1.4) mg/dL Estim Creat Clear Calc Estimated GFR POC Glucose 109 280 H (60-115) mg/dL Random Glucose (60-115) mg/dL Calcium (8.4-10.2) mg/dL Magnesium (1.6-2.6) mg/dL Total Bilirubin (0.0-1.0) mg/dL AST (5-37) U/L ALT (0-40) U/L Alkaline Phosphatase (39-117) U/L Troponin I High Sens (<3.5-35.0) ng/L Total Protein (6.5-8.0) g/dL Albumin (3.5-5.0) g/dL Beta-Hydroxybutyrate (0.02-0.27) mmol/L Urine Color Urine Appearance Urine pH (5.0-9.0) Ur Specific [place] (1.005-1.025) Urine Protein (Neg-Trace) mg/dL Urine Glucose (UA) (Negative) mg/dL Urine Ketones (Negative) mg/dL Urine Blood (Negative) Urine Nitrite (Negative) Ur Leukocyte Esterase (Negative) Urine RBC (0-2) /HPF Urine WBC (0-5) /HPF Ur Squamous Epith Cells (0-2) /HPF Urine Bacteria (None Seen) Hyaline Casts (0-2) /LPF COVID-19 (FREDRICK) (Negative) COVID-19 Clin Com Influenza Type A (HERMES) (Negative) Influenza Type B (HERMES) (Negative) Influenza A & B Note ABG Data Attestation ABG: I personally reviewed and interpreted this ABG as follows: Interpretation: Metabolic acidosis with respiratory compensation, pH 7.44 Independent Interpretation I performed an independent interpretation of an: EKG Interpretation: My independent interpretation of the ECG reveals normal sinus tachycardia with rate of 107, normal axis, normal intervals, no ST elevations or depressions to suggest ischemic changes, no previous for comparison. Radiology Impression Discussion of test interpretation with radiology: I have reviewed the radiologist's reading. Independent Historian Clinical information obtained from an independent historian. History obtained from or confirmed by: EMS External Record Review External record reviewed: Inpatient record Prescription Management I considered prescription management with: Pain Medication, Antibiotic and Other (Antiemetics) Chronic Conditions Patient?s care impacted by: Diabetes and Other (Prior splenectomy) Social Determinants Patient?s care significantly limited by Social Determinants of Health including: Other Social Determinant of Health Critical Care Time Critical Care Time Critical Care Time: Yes Total Critical Care Time: 55 Attestation: CRITICAL CARE TIME: 55 minutes of critical care time was spent in direct patient care at the bedside or in the immediate area with this patient. Critical care was necessary to treat or prevent imminent or life-threatening deterioration of the following conditions diabetic ketoacidosis, acute abdominal pain, nausea, vomiting and hypomagnesemia due to suspected infectious process in the setting asplenia and insulin-dependent diabetes. This patient is high risk for decompensation and/or . This time was spent assessing and managing the patient, interpreting labs and imaging, coordinating care with other medical providers, gathering history from either the patient, their representatives, EMS or chart review, and discussing management with RN, patient. Discharge Plan Discharge Clinical Impression: DKA (diabetic ketoacidosis), Hypomagnesemia, Acute nausea with nonbilious vomiting, Community acquired pneumonia, Asplenia Patient Disposition: Home, Self-Care Instructions: Diabetic Ketoacidosis (DC), Community Acquired Pneumonia (ED) Additional Instructions: Take your antibiotic as prescribed until the course is completed. Do not stop this medication early if you start to feel better. Return to the emergency department with any new or worsening symptoms including: Worsening pain, fevers greater than 100? despite antibiotic treatment, worsening vomiting, or any new symptom that concerns you. Call 911 with any medical emergency. Follow up with your primary care doctor as soon as possible. Prescriptions: New dicyclomine 20 mg tablet 20 mg PO TID Qty: 10 0RF doxycycline monohydrate 100 mg capsule 100 mg PO BID 10 Days Qty: 20 0RF ondansetron 4 mg tablet,disintegrating 4 mg PO Q8H PRN (Reason: nausea and vomiting) Qty: 10 0RF amoxicillin-pot clavulanate 875-125 mg tablet 1 tab PO BID 10 Days Qty: 20 0RF No Action amoxicillin 500 mg capsule 1,000 mg PO TID 5 Days Qty: 30 0RF doxycycline hyclate 100 mg tablet 100 mg PO Q12H 5 Days Qty: 10 0RF Print Language: Kinyarwanda
[2025-01-17 07:56] VITALS: BP 115/57; PULSE 88; RESP 16; O2SAT 95
[2025-01-17 07:58] LABS: Glucose, Whole Blood 280 mg/dL (60-115)
[2025-01-17 08:26] VITALS: BP 115/57; PULSE 88; RESP 16; TEMP 36.1; O2SAT 95
== END 2025-01-17 08:26 | disposition home or self-care (01) ==
PROVIDERS: Emergency Provider Emergency Medicine
DX: E11.10 Type 2 diabetes mellitus with ketoacidosis without coma (principal); E83.42 Hypomagnesemia; R11.2 Nausea with vomiting, unspecified; R19.7 Diarrhea, unspecified; J18.9 Pneumonia, unspecified organism; Q89.01 Asplenia (congenital); Z03.818 Encounter for observation for suspected exposure to other biological agents ruled out; R00.0 Tachycardia, unspecified; R05.9 Cough, unspecified; R07.9 Chest pain, unspecified; Z79.4 Long term (current) use of insulin; Z98.890 Other specified postprocedural states
CPT/HCPCS: 36415; 71046; 80048; 80053; 81001; 82010; 82803; 82947; 83735; 84484; 85025; 87502; 87635; 93005; 96361; 96365; 96366; 96375; 99285; 99291; J1171; J1630; J2270; J2405; J3475

== ENCOUNTER → 2025-01-17 00:45 | Outpatient (BNV) | payer OTHER, SELFPAY | PROVIDERS: Emergency Provider Emergency Medicine; Visit Provider Internal Medicine Cardiovascular Disease | DX: R00.0 Tachycardia, unspecified (principal) | CPT/HCPCS: 93010 ==

== ENCOUNTER → 2025-01-17 06:54 | Outpatient (BNV) | payer OTHER, SELFPAY | PROVIDERS: Emergency Provider Emergency Medicine; Visit Provider Radiology Diagnostic Radiology | DX: R05.9 Cough, unspecified (principal); R07.9 Chest pain, unspecified | CPT/HCPCS: 71046 ==

== ENCOUNTER 2025-01-22 09:06 | Outpatient (AMB) | payer OTHER, SELFPAY ==
[2025-01-22 09:12] VITALS: BP 110/80; PULSE 84; RESP 15; TEMP 36.6; O2SAT 97
--- NOTE | 2025-01-22 09:12 | AM.OFFWIN_ITS ---
Intake Vital Signs 01/22/25 09:12 Height 5 ft 9 in Weight 203 lb BMI 30.0 BP 110/80 Blood Pressure Location Lt brachial Position Sitting Respiration 15 Pulse 84 Pulse Source Pulse Oximeter Temp 97.8 F Temp Source Oral Pulse Oximetry (%) 97 Oxygen Delivery Method Room Air Intake Visit Reasons: EP Back pain Intake Note: Pt is here today c/o upper back pain to lower back: Pt states he's been off the suboxone for about a week Patient Tobacco Use Status: Current someday Tobacco user Allergies fluoxetine (From Prozac) Adverse Reaction (Verified 01/22/25 09:22) Stomach Upset varenicline (From Chantix) Adverse Reaction (Verified 01/22/25 09:22) Stomach Upset Medication List - Last Reconciled 01/22/25 by Barbara Arteaga, [facility]- amoxicillin-pot clavulanate 875-125 mg 1 tab PO BID 10 days aripiprazole 2 mg PO DAILY atorvastatin 20 mg PO DAILY buprenorphine-naloxone 4-1 mg 1 film buccal Q24H dicyclomine 20 mg PO TID doxycycline monohydrate 100 mg PO BID 10 days ergocalciferol (vitamin D2) PO fluticasone propionate 50 mcg/actuation sprays intranasal hydroxyzine pamoate 50 mg PO BEDTIME PRN insulin aspart (niacinamide) 100 unit/mL (3 mL) (Fiasp Penfill U-100 Insulin) subcut tdqmui-fhawewbm-syfckse (pork) 24,000-76,000 -120,000 unit (Creon) caps PO magnesium oxide mg PO mirtazapine 15 mg PO BEDTIME ondansetron 4 mg PO Q8H PRN prazosin 1 mg PO QAM sertraline 200 mg PO DAILY HPI HPI Comments History of Present Illness Details Chief Complaint The patient is a 45-year-old male presenting with a chief complaint of back pain. History The patient is a 45-year-old male presenting with back pain. Chronic back pain: - The patient has a history of chronic b ack pain and was on Suboxone for about a year and a half for pain management. - He recently weaned off Suboxone under medical supervision because he did not want to be on it retirement. - Since discontinuing Suboxone, the pain has become severe, unmanageable, and feels like something definitely wrong . - Associated symptoms include vomiting, inability to function, and inability to sleep. - He has been sobbing every day from the pain. - He has tried gmff-fgn-xrjflnw back spr ays and creams with no relief. - The patient tried unspecified prescrip tion-strength anti-inflammatories in the past without effect. - He recently switched to a new primary care provider at [facility] but his new patient appointment is not until March 08. Past Medical History - Chronic back pain, previously managed with Suboxone for about a year and a half. - Allergies to fluoxetine and vareniclin e. Review of Systems - Musculoskeletal: Reports severe, unman ageable chronic back pain. - Gastrointestinal: Reports vomiting sec ondary to pain. - Neurological: Reports inability to sle ep due to pain. - Psychiatric: Reports sobbing every day from the pain. Physical Exam General: Awake, alert. Accompanied by Girlfriend. Sobbing, rocking. Irritable yet cooperative. Respiratory: Speaking in full sentences CORREIA X 4, normal gait. Nonfocal neuro exam Medical Decision Making The patient is a 45-year-old male with chronic back pain who presents to this walk-in clinic for a severe exacerbation of pain after recently discontinuing Suboxone. The pain is debilitating, causing vomiting and an inability to function or sleep, and is really beyond the scope of a walk-in visit. Advanced imaging such as an MRI is required for further evaluation of his back, but this is best coordinated by his primary care provider. An x-ray would provide no additional information and result in unnecessary radiation. The patient cannot see his new PCP until the end of February, so to provide some symptomatic relief, a trial of meloxicam 15 mg daily is prescribed. I will also send a message to his new PCP to request an expedited appointment due to the severity of the patient's symptoms. Sent to PCP ANTON: Duke, I saw him today in the walk-in for chronic back pain. He recently tapered himself off of Suboxone and is having recurrence of his chronic back pain. He would benefit from a referral to pain management but this can not be done from the walk-in. I did let him know that I would send a message to your office to see if there was any sooner availability with any provider. Perhaps we can even recommend the [facility] if there sooner availability as the patient does not have a preference as to wear he is seen for primary care. If you can please reach out to him directly that would be appreciated thank you. Barbara Carpenter 1. Chronic Back Pain - Acknowledged that the patient's chroni c issue is beyond the scope of a walk-in clinic and is best managed by his primary care provider. - Explained that an X-ray would not be b eneficial, and advanced imaging like an MRI should be ordered by his PCP. - Prescribed meloxicam 15 mg once daily as a trial to manage pain and inflammation. - A courtesy message will be sent to his new primary care provider to request an earlier appointment due to symptom severity, noting he is willing to see any provider. - The PCP's office will be asked to call the patient regarding any appointment availability. Patient Instructions - Take one tablet of meloxicam 15 mg by mouth once a day. - Make sure to take the meloxicam with f ood in your stomach. - We will contact your new primary care doctor's office to ask for a sooner appointment for you. - The primary care office should call radha caal if an earlier appointment becomes available. Consent Patient was informed and verbally consented to the use of an ambient scribe for clinic note documentation during this visit. [facility] Social History Patient Tobacco Use Status: Current someday Tobacco user Substance Use Type: Marijuana Physical Exam Vital Signs: Last Vital Signs Temp 97.8 F 01/22/25 09:12 Pulse 84 01/22/25 09:12 Resp 15 01/22/25 09:12 BP 110/80 01/22/25 09:12 Pulse Ox 97 01/22/25 09:12 Oxygen Delivery Method Room Air 01/22/25 09:12 BMI result Body Mass Index 30.0 Assessment & Plan Assessment & Plan (1) Chronic back pain: Code(s): M54.9 - Dorsalgia, unspecified; G89.29 - Other chronic pain Plan . Medications: New meloxicam 15 mg PO DAILY 30 tabs 0RF Discontinued amoxicillin Discontinued Reason: Patient Completed Course 1,000 mg (2 x 500 mg) PO TID 5 days 30 caps 0RF doxycycline hyclate Discontinued Reason: Patient Completed Course 100 mg PO Q12H 5 days 10 tabs 0RF Coding Level of Care Code Est Pt Level 3 (04112) Diagnoses Chronic back pain M54.9; G89.29
== END 2025-01-22 09:36 | disposition home or self-care (01) ==
PROVIDERS: Visit Provider Nurse Practitioner Family
DX: M54.9 Dorsalgia, unspecified (principal); G89.29 Other chronic pain

== ENCOUNTER → 2025-01-22 09:06 | Outpatient (BNVA) | payer OTHER, SELFPAY | PROVIDERS: Visit Provider Nurse Practitioner Family | DX: M81.0 Age-related osteoporosis without current pathological fracture (principal); M54.9 Dorsalgia, unspecified; G89.29 Other chronic pain; Z79.891 Long term (current) use of opiate analgesic | CPT/HCPCS: 99212 ==

== ENCOUNTER 2025-01-23 06:19 | Emergency (ER) | payer OTHER, SELFPAY ==
--- NOTE | ~2025-01-23 | XR_ITS ---
CLINICAL HISTORY: neck pain 3 views cervical spine Comparison: CR/SR - XR CHEST 2V - 01/17/25 07:45 EST Findings: Normal alignment. No acute fractures or dislocation. Mild degenerative changes with osteophyte formation and intervertebral disc height loss at C5-C6. Prevertebral soft tissues within normal limits. IMPRESSION: No acute cervical spine findings. This document has been electronically signed by: Orion Butler MD on 01/23/2025 08:54:08
[2025-01-23 06:30] VITALS: BP 128/72; PULSE 106; RESP 20; TEMP 37; O2SAT 95; BMI 29.9
[2025-01-23] MEDS: Lidocaine 4 % Patch ADH..PATCH 1 PATCH TRANSDERMA (07:20)
--- NOTE | 2025-01-23 07:25 | ED.BACK ---
HPI - Back Pain/Injury General Chief Complaint: Back Pain/Injury Stated Complaint: Back Pain Time Seen by Provider: 01/23/25 06:38 Source: patient Mode of arrival: ambulatory Limitations: no limitations History of Present Illness ED Provider: HPI Narrative: 44-year-old male with a history of insulin-dependent diabetes, status post splenectomy and pancreatectomy currently has been weaned off Suboxone which he was using for pain control due to his prior surgeries, presenting with essentially entire back pain mostly in the cervical area and radiating down to the mid back, no ongoing IV drug use, no surgeries or instrumentation to the back, no weakness in upper or lower extremities, no fevers or chills. No chest pain or shortness of breath. Symptoms going on for the past 1 and half to 2 weeks, he states the pain can get so bad that he has thrown up, on February 16 he was seen in the emergency department with reports of nausea or vomiting had workup. Nontraumatic Related Data Home Medications ?Medication ?Instructions ?Recorded ?Confirmed aripiprazole 2 mg tablet 2 mg PO DAILY 01/22/25 01/22/25 atorvastatin 20 mg tablet 20 mg PO DAILY 01/22/25 01/22/25 buprenorphine 4 mg-naloxone 1 mg 1 film buccal Q24H 01/22/25 01/22/25 sublingual film ergocalciferol (vitamin D2) 1,250 PO 01/22/25 01/22/25 mcg (50,000 unit) capsule fluticasone propionate 50 spray intranasal 01/22/25 01/22/25 mcg/actuation nasal spray,suspension hydroxyzine pamoate 50 mg capsule 50 mg PO BEDTIME PRN insomnia 01/22/25 01/22/25 insulin aspart subcut 01/22/25 01/22/25 (niacinamide)(U-100) 100 unit/mL (3 mL) subcu cartridge (Fiasp Penfill U-100 Insulin) chqypc-nvrsyfej-vtjxhx(pork)24,000-76,000-120,000 cap PO 01/22/25 01/22/25 unit capsule,del rel (Creon) magnesium oxide 400 mg (241.3 mg mg PO 01/22/25 01/22/25 magnesium) tablet mirtazapine 15 mg tablet 15 mg PO BEDTIME 01/22/25 01/22/25 prazosin 1 mg capsule 1 mg PO QAM 01/22/25 01/22/25 sertraline 100 mg tablet 200 mg PO DAILY 01/22/25 01/22/25 Previous Rx's ?Medication ?Instructions ?Recorded amoxicillin 875 mg-potassium 1 tab PO BID 10 days #20 tabs 01/17/25 clavulanate 125 mg tablet dicyclomine 20 mg tablet 20 mg PO TID #10 tabs 01/17/25 doxycycline monohydrate 100 mg 100 mg PO BID 10 days #20 caps 01/17/25 capsule ondansetron 4 mg disintegrating 4 mg PO Q8H PRN nausea and 01/17/25 tablet vomiting #10 tabs meloxicam 15 mg tablet 15 mg PO DAILY #30 tabs 01/22/25 metaxalone 800 mg tablet 800 mg PO TID 7 days #21 tabs 01/23/25 methylprednisolone 4 mg tablets in 4 mg PO DAILY #21 ea 01/23/25 a dose pack (Medrol (Addison)) Allergies Allergy/AdvReac Type Severity Reaction Status Date / Time fluoxetine (From Prozac) AdvReac Stomach Verified 01/23/25 06:30 Upset varenicline (From Chantix) AdvReac Stomach Verified 01/23/25 06:30 Upset Review of Systems Constitutional: Constitutional: Reports as per [facility] Social History Social History Patient Tobacco Use Status: Current someday Tobacco user Substance Use Type: Marijuana Advance Directives: No Advance Directives Information Provided: Yes Physical Exam Exam: Exam: General: ?Appears of stated age, somewhat anxious affect ? Neck: Supple, no LAD ? ?MSK: FROM, strength 5/5 all extremities, with paraspinal muscle tenderness essentially from the lower cervical spine down to lower lumbar no midline tenderness no step-offs Generally abdominal exam is benign nontender nondistended no CVA tenderness ? Skin: Warm, dry, intact, no rashes ? ?Neuro: ?Alert and oriented x3, moving upper and lower extremities symmetrically, no obvious facial asymmetry noted, cranial nerves 2-12 intact Vital Signs: Vital Signs: Last Vital Signs Temp 98.6 F 01/23/25 06:30 Pulse 106 H 01/23/25 06:30 Resp 20 01/23/25 06:30 BP 128/72 01/23/25 06:30 Pulse Ox 95 01/23/25 06:30 O2 Del Method Room Air 01/23/25 06:30 BMI result Body Mass Index 29.9 Medications Administered Discontinued Medications Generic Name Dose Route Start Last Admin Trade Name Patricia PRN Reason Stop Dose Admin Dexamethasone 10 mg 01/23/25 07:04 01/23/25 07:19 Dexamethasone 2 Mg Tablet PO 01/23/25 07:05 10 mg ONCE ONE Administration Ketorolac Tromethamine 15 mg 01/23/25 07:04 01/23/25 07:21 Ketorolac Tromethamine 15 Mg/Ml Vial IM 01/23/25 07:05 15 mg ONCE ONE Administration Lidocaine 1 patch 01/23/25 07:04 01/23/25 07:20 Lidocaine 4 % Patch Adh..Patch TRANSDERMA 01/23/25 07:05 1 patch ONCE ONE Administration Protocol Medical Decision Making Medical Decision Making MDM Narrative: 7:28 AM 01/23/2025 (Dr. Ruben Collazo): No red flags for infectious etiology such as diskitis osteomyelitis spinal epidural abscess, see my HPI, no neurologic deficits to suspect cervical or midthoracic myelopathy, examination and x-rays consistent with spasm, symptoms exacerbated by the fact that he is currently of Suboxone I reviewed his blood work from recent visits 6 days ago, there was no utility in repeating blood work at this time as this does not appear to be infectious, it is not going to impact my current management Differential Diagnosis Differential Diagnoses: The differential diagnosis associated with the presentation includes (Diskitis, osteomyelitis, spinal epidural abscess, cauda equina, musculoskeletal pain) Admission/Observation Consideration of admission/observation: Escalation of care including admission/observation considered Independent Interpretation I performed an independent interpretation of an: Plain X-Ray (Loss of lumbar lordosis consistent with spasm, no destructive lesions, minimal DJD) Radiology Impression Discussion of test interpretation with radiology: I have reviewed the radiologist's reading. Tests considered The following testing was considered but not selected: CT cervical spine, CT thoracic spine, CT lumbar spine, CBC, CMP Prescription Management I considered prescription management with: Pain Medication Chronic Conditions Patient?s care impacted by: Diabetes Discharge Plan Discharge Clinical Impression: Thoracic back pain, Neck pain Patient Disposition: Home, Self-Care Additional Instructions: As discussed I recommend gentle stretching, capsaicin ointment patches or of the patches become too expensive you can use capsaicin ointment I find that it helpes with muscle spasm which I think you are experiencing, rub it on both side the spine no apply patches on both side of the spine from the mid back area to the lower back First dose of steroids in the ER, thereafter continue with the Medrol Dosepak starting tomorrow I am hoping this will help you with the most, metaxalone is a muscle relaxant, typically it is fairly non sedating compared to the other available muscle relaxants, you can take it 3 times a day can start with twice a day and see how you respond, but generally I would recommend gentle stretching, sitting in the hot shower with the back exposed to the hot water and then after getting out of the shower to stretch out Follow up with the PCP, any fevers chills worsening symptoms come back to the ER your x-ray is consistent with spasm in the neck area Prescriptions: New methylprednisolone [Medrol (Addison)] 4 mg tablets,dose pack 4 mg PO DAILY Qty: 21 0RF Rx Instructions: Day 1: 24 mg on day 1 administered as 8 mg before breakfast, 4 mg after lunch, 4 mg after supper, and 8 mg at bedtime or 24 mg as a single dose or divided into 2 or 3 doses upon initiation. Day 2: 20 mg on day 2 administered as 4 mg before breakfast, 4 mg after lunch, 4 mg after supper, and 8 mg at bedtime. Day 3: 16 mg on day 3 administered as 4 mg before breakfast, 4 mg after lunch, 4 mg after supper, and 4 mg at bedtime. Day 4: 12 mg on day 4 administered as 4 mg before breakfast, 4 mg after lunch, and 4 mg at bedtime. Day 5: 8 mg on day 5 administered as 4 mg before breakfast and 4 mg at bedtime. Day 6: 4 mg on day 6 administered as 4 mg before breakfast. metaxalone 800 mg tablet 800 mg PO TID 7 Days Qty: 21 0RF No Action dicyclomine 20 mg tablet 20 mg PO TID Qty: 10 0RF doxycycline monohydrate 100 mg capsule 100 mg PO BID 10 Days Qty: 20 0RF ondansetron 4 mg tablet,disintegrating 4 mg PO Q8H PRN (Reason: nausea and vomiting) Qty: 10 0RF amoxicillin-pot clavulanate 875-125 mg tablet 1 tab PO BID 10 Days Qty: 20 0RF atorvastatin 20 mg tablet 20 mg PO DAILY prazosin 1 mg capsule 1 mg PO QAM sertraline 100 mg tablet 200 mg PO DAILY hydroxyzine pamoate 50 mg capsule 50 mg PO BEDTIME PRN (Reason: insomnia) magnesium oxide 400 mg (241.3 mg magnesium) tablet PO mirtazapine 15 mg tablet 15 mg PO BEDTIME ergocalciferol (vitamin D2) 1,250 mcg (50,000 unit) capsule PO fluticasone propionate 50 mcg/actuation spray,suspension intranasal aripiprazole 2 mg tablet 2 mg PO DAILY Creon 24,000-76,000 -120,000 unit capsule,delayed release(DR/EC) PO buprenorphine-naloxone 4-1 mg film 1 film buccal Q24H Rx Instructions: place 1 strip/tab under (each) side of tongue Fiasp Penfill U-100 Insulin 100 unit/mL (3 mL) cartridge subcut meloxicam 15 mg tablet 15 mg PO DAILY Qty: 30 0RF Print Language: Icelandic
[2025-01-23 07:56] VITALS: BP 112/74; PULSE 86; RESP 18; TEMP -17.7; TEMP 0; O2SAT 96
== END 2025-01-23 07:57 | disposition home or self-care (01) ==
PROVIDERS: Emergency Provider Emergency Medicine
DX: M54.6 Pain in thoracic spine (principal); M54.2 Cervicalgia; E11.9 Type 2 diabetes mellitus without complications; Z79.4 Long term (current) use of insulin
CPT/HCPCS: 72040; 96372; 99283; 99284; J1885; J8540

== ENCOUNTER → 2025-01-23 07:04 | Outpatient (BNV) | payer OTHER, SELFPAY | PROVIDERS: Emergency Provider Emergency Medicine; Visit Provider Radiology Vascular & Interventional Radiology | DX: M54.2 Cervicalgia (principal) | CPT/HCPCS: 72040 ==

== ENCOUNTER 2025-01-29 18:02 | Emergency (ER) | payer OTHER, SELFPAY ==
[2025-01-29 18:11] VITALS: BP 121/84; PULSE 87; RESP 16; TEMP 37.1; O2SAT 97
[2025-01-29 18:15] VITALS: BP 121/84; BP 122/90; PULSE 100; PULSE 83; RESP 16; TEMP 37.1; O2SAT 97; O2SAT 98
[2025-01-29 18:16] VITALS: BP 121/84; PULSE 83; RESP 16; TEMP 37.1; O2SAT 97; BMI 29.3
[2025-01-29 18:47] LABS: Alanine Aminotransferase 78 U/L (0-40); Albumin Level 3.9 g/dL (3.5-5.0); Alkaline Phosphatase 82 U/L (39-117); Anion Gap 12 (12-20); Aspartate Amino Transferase 60 U/L (5-37); Blood Urea Nitrogen 17 mg/dL (9-16); Calcium 9.1 mg/dL (8.4-10.2); Carbon Dioxide 24 mmol/L (22-29); Chloride 109 mmol/L (96-108); Creatinine Clr Calc Pharmacy 124.4; Estimated Glomerular Filt Rate > 60; Lipase < 4 U/L (8-78); Potassium 3.5 mmol/L (3.3-5.1); Sodium 141 mmol/L (135-145); Total Protein 6.7 g/dL (6.5-8.0)
[2025-01-29 19:09] LABS: Hematocrit 39.5 % (42.0-52.0); Hemoglobin 13.5 g/dl (14.0-18.0); Imm Gran Abs Auto 0.06 X10*3/uL (0.00-0.03); Imm Gran Pct Auto 0.4 % (0.0-0.4); MANUAL DIFF FLAG SCAN; Mean Corpuscular HGB Conc 34.2 g/dl (31.0-36.0); Mean Corpuscular Hemoglobin 30.9 pg (27.0-33.0); Mean Corpuscular Volume 90.4 fL (80.0-98.0); NRBC Abs Auto 0.000 X10*3/uL (0.0-0.012); NRBC Pct Auto 0.0 /100WBC (0.0-0.2); Platelet Count 305 X10*3/uL (160-400); Red Blood Count 4.37 X10*6/uL (4.60-5.80); SCAN SMEAR FLAG 1; White Blood Count 15.0 X10*3/uL (4.8-10.8)
[2025-01-29 19:17] LABS: Lymphocytes Absolute Auto 7.5 X10*3/uL (1.2-4.9)
[2025-01-29 19:41] VITALS: BP 117/74; PULSE 70; RESP 18; TEMP 36.7; O2SAT 96
--- NOTE | 2025-01-29 19:43 | PC.NURSE ---
20 g IV in left wrist from EMS
[2025-01-29 20:02] LABS: Appearance Urine Clear; Glucose Urine UA Negative (Negative); PH 5.5 (5.0-9.0); Specific Gravity - Urine 1.025 (1.005-1.025)
--- NOTE | 2025-01-29 20:16 | ED.GENADULT ---
HPI - General Adult General Chief complaint: Abdominal Pain Stated complaint: abd pain n/v/d Time Seen by Provider: 01/29/25 20:11 Source: patient Limitations: no limitations History of Present Illness ED Provider: Salina Liu PA-C HPI narrative: 45-year-old male with a history ofinsulin-dependent diabetes, status post splenectomy and pancreatectomy , who recently completed treatment for community-acquired pneumonia approximately 10 days ago, presents with a epigastric discomfort. Patient states over the past 3 days he is experiencing worsening epigastric discomfort. Associated nausea vomiting diarrhea and indigestion. Unable to describe the nature of his discomfort. Denies sick contacts with similar symptoms or fever. Patient is having 5 episodes of loose stool a day. No recent travel out of the country, no hospitalization. Related Data Home Medications ?Medication ?Instructions ?Recorded ?Confirmed aripiprazole 2 mg tablet 2 mg PO DAILY 01/22/25 01/22/25 atorvastatin 20 mg tablet 20 mg PO DAILY 01/22/25 01/22/25 buprenorphine 4 mg-naloxone 1 mg 1 film buccal Q24H 01/22/25 01/22/25 sublingual film ergocalciferol (vitamin D2) 1,250 PO 01/22/25 01/22/25 mcg (50,000 unit) capsule fluticasone propionate 50 spray intranasal 01/22/25 01/22/25 mcg/actuation nasal spray,suspension hydroxyzine pamoate 50 mg capsule 50 mg PO BEDTIME PRN insomnia 01/22/25 01/22/25 insulin aspart subcut 01/22/25 01/22/25 (niacinamide)(U-100) 100 unit/mL (3 mL) subcu cartridge (Fiasp Penfill U-100 Insulin) [id number]-[id number]-sltfbi(pork)24,000-76,000-120,000 cap PO 01/22/25 01/22/25 unit capsule,del rel (Creon) magnesium oxide 400 mg (241.3 mg mg PO 01/22/25 01/22/25 magnesium) tablet mirtazapine 15 mg tablet 15 mg PO BEDTIME 01/22/25 01/22/25 prazosin 1 mg capsule 1 mg PO QAM 01/22/25 01/22/25 sertraline 100 mg tablet 200 mg PO DAILY 01/22/25 01/22/25 Previous Rx's ?Medication ?Instructions ?Recorded amoxicillin 875 mg-potassium 1 tab PO BID 10 days #20 tabs 01/17/25 clavulanate 125 mg tablet dicyclomine 20 mg tablet 20 mg PO TID #10 tabs 01/17/25 doxycycline monohydrate 100 mg 100 mg PO BID 10 days #20 caps 01/17/25 capsule ondansetron 4 mg disintegrating 4 mg PO Q8H PRN nausea and 01/17/25 tablet vomiting #10 tabs meloxicam 15 mg tablet 15 mg PO DAILY #30 tabs 01/22/25 metaxalone 800 mg tablet 800 mg PO TID 7 days #21 tabs 01/23/25 methylprednisolone 4 mg tablets in 4 mg PO DAILY #21 ea 01/23/25 a dose pack (Medrol (Addison)) Allergies Allergy/AdvReac Type Severity Reaction Status Date / Time fluoxetine (From Prozac) AdvReac Stomach Verified 01/29/25 18:17 Upset varenicline (From Chantix) AdvReac Stomach Verified 01/29/25 18:17 Upset Review of Systems Review of Systems: Yes all other systems are reviewed and are negative Constitutional: Constitutional: Denies fatigue and Denies fever(s) Cardiovascular: Cardiovascular: Denies chest pain and Denies dyspnea Respiratory: Respiratory: Denies cough and Denies dyspnea Gastrointestinal: Gastrointestinal: Reports abdominal pain, Reports diarrhea, Reports nausea and Reports vomiting Endocrine: Endocrine: Denies fatigue PMF Past Medical History Attestation statement: The following information was validated with the patient. Social History Social History Patient Tobacco Use Status: Current someday Tobacco user Smoked in Last 30 Days: Yes Use of substances other than those prescribed or required for medical reasons: No Substance Use Type: Marijuana Advance Directives: No Advance Directives Information Provided: No Do you have a plan to hurt others: No Plan Physical Exam ED Vital Signs: Vital Signs - 24 hr 01/29/25 18:11 01/29/25 18:15 01/29/25 18:16 Temperature 98.7 F 98.7 F 98.7 F Pulse Rate 87 83 83 Respiratory Rate 16 16 16 Blood Pressure 121/84 121/84 121/84 Pulse Oximetry 97 97 97 Oxygen Delivery Method Room Air Room Air Room Air 01/29/25 19:41 01/29/25 21:38 Temperature 98.1 F 98.1 F Pulse Rate 70 70 Respiratory Rate 18 18 Blood Pressure 117/74 117/74 Pulse Oximetry 96 96 Oxygen Delivery Method Room Air Room Air BMI result Body Mass Index 29.3 Const Other: Alert Orientation/consciousness: patient oriented x3 Resp Effort & Inspection: normal respiratory effort Cardio Other: Normal peripheral perfusion GI Other: Abdomen is soft, nondistended, nontender no guarding Skin Other: Warm dry no rash Neuro General: patient oriented x3, gait normal, no focal motor deficits and CN's II-XI intact bilaterally Psych Other: Cooperative Course Reevaluation(s) Reevaluation #1: Pt eloped Time: 21:33 Medications Administered Discontinued Medications Generic Name Dose Route Start Last Admin Trade Name Freq PRN Reason Stop Dose Admin Dicyclomine HCl 20 mg 01/29/25 20:30 01/29/25 20:36 Dicyclomine Hcl 10 Mg Capsule PO 01/29/25 20:31 20 mg ONCE ONE Administration Droperidol 2.5 mg 01/29/25 20:27 01/29/25 20:31 Droperidol 5 Mg/2 Ml Vial IVPUSH 01/29/25 20:28 2.5 mg ONCE ONE Administration Sodium Chloride 500 mls @ 500 mls/hr 01/29/25 20:19 01/29/25 21:34 Ns IV 01/29/25 21:18 Infused .Q1H ONE Infusion Sucralfate 1 gm 01/29/25 20:27 01/29/25 20:31 Sucralfate Oral Suspension 1 Gm/10 Ml Oral.Susp PO 01/29/25 20:28 1 gm ONCE ONE Administration Medical Decision Making Medical Decision Making MDM Narrative: 45-year-old male with a history ofinsulin-dependent diabetes, status post splenectomy and pancreatectomy , who recently completed treatment for community-acquired pneumonia approximately 10 days ago, presents with a epigastric discomfort. Patient states over the past 3 days he is experiencing worsening epigastric discomfort. Associated nausea vomiting diarrhea and indigestion. Unable to describe the nature of his discomfort. Denies sick contacts with similar symptoms or fever. Patient is having 5 episodes of loose stool a day. No recent travel out of the country, no hospitalization. Problem: Insulin dependent diabetes, asplenia History: Per patient I have considered the following differential diagnoses: Diverticulitis, viral gastroenteritis, C diff, traveler's diarrhea Plan: Patient here with acute nausea vomiting diarrhea, likely viral gastroenteritis, however he has no sick contacts. He does have technically risk for C diff, he just completed antibiotics, however he is not having intractable loose stool, he is afebrile without leukocytosis, his abdominal exam was benign. He is well-appearing. I do not feel he requires stool cultures to rule out C diff. he also has no risk factors for traveler's diarrhea. There was no focal left lower quadrant pain to suggest a diverticulitis. We will give symptomatic relief and discharge the patient home. No indication for imaging. I have independently reviewed the following tests: Labs: Improving leukocytosis, no left shift, not anemic, no electrolyte abnormality, no gap, LFTs at baseline, urine not infected Differential Diagnosis Differential Diagnoses: The differential diagnosis associated with the presentation includes See [facility] Admission/Observation Consideration of admission/observation: Escalation of care including admission/observation considered Not applicable Lab Data [facility] Lab Attestation statement: I reviewed the patient's lab results. 01/29/25 18:25 01/29/25 18:25 Labs: Lab Results 01/29/25 01/29/25 Range/Units 18:25 19:56 WBC 15.0 H (4.8-10.8) X10*3/uL RBC 4.37 L (4.60-5.80) X10*6/uL Hgb 13.5 L (14.0-18.0) g/dl Hct 39.5 L (42.0-52.0) % MCV 90.4 (80.0-98.0) fL MCH 30.9 (27.0-33.0) pg MCHC 34.2 (31.0-36.0) g/dl RDW 13.9 (11.0-16.0) % Plt Count 305 (160-400) X10*3/uL MPV 10.0 (9.4-12.4) fL Immature Gran % (Auto) 0.4 (0.0-0.4) % Neut % (Auto) 37.1 L (45-73) % Lymph % (Auto) 50.0 H (20-40) % [place] % (Auto) 10.7 (2-11) % Eos % (Auto) 1.3 (0-4) % Baso % (Auto) 0.5 (0-2) % Lymph # (Auto) 7.5 H (1.2-4.9) X10*3/uL [place] # (Auto) 1.6 H (0.1-1.2) X10*3/uL Eos # (Auto) 0.2 (0.0-0.4) X10*3/uL Baso # (Auto) 0.1 (0.0-0.2) X10*3/uL Abs Immat Gran (auto) 0.06 H (0.00-0.03) X10*3/uL Absolute Neuts (auto) 5.6 (2.0-8.3) x10*3/uL Absolute Nucleated RBC 0.000 (0.0-0.012) X10*3/uL Nucleated RBC % (auto) 0.0 (0.0-0.2) /100WBC Smear Tech's Comments VERIFIED Sodium 141 (135-145) mmol/L Potassium 3.5 (3.3-5.1) mmol/L Chloride 109 H (96-108) mmol/L Carbon Dioxide 24 (22-29) mmol/L Anion Gap 12 (12-20) BUN 17 H (9-16) mg/dL Creatinine 0.84 (0.5-1.4) mg/dL Estim Creat Clear Calc 124.4 Estimated GFR > 60 Random Glucose 72 (60-115) mg/dL Calcium 9.1 D (8.4-10.2) mg/dL Total Bilirubin 0.6 (0.0-1.0) mg/dL AST 60 H (5-37) U/L ALT 78 H (0-40) U/L Alkaline Phosphatase 82 (39-117) U/L Total Protein 6.7 (6.5-8.0) g/dL Albumin 3.9 (3.5-5.0) g/dL Lipase < 4 L (8-78) U/L Urine Color Dark Yellow Urine Appearance Clear Urine pH 5.5 (5.0-9.0) Ur Specific [place] 1.025 (1.005-1.025) Urine Protein Negative (Neg-Trace) mg/dL Urine Glucose (UA) Negative (Negative) mg/dL Urine Ketones Trace (Negative) mg/dL Urine Blood Negative (Negative) Urine Nitrite Negative (Negative) Ur Leukocyte Esterase Negative (Negative) Discharge Plan Discharge Clinical Impression: Abdominal pain Patient Disposition: Elopement Prescriptions: No Action dicyclomine 20 mg tablet 20 mg PO TID Qty: 10 0RF doxycycline monohydrate 100 mg capsule 100 mg PO BID 10 Days Qty: 20 0RF ondansetron 4 mg tablet,disintegrating 4 mg PO Q8H PRN (Reason: nausea and vomiting) Qty: 10 0RF amoxicillin-pot clavulanate 875-125 mg tablet 1 tab PO BID 10 Days Qty: 20 0RF methylprednisolone [Medrol (Addison)] 4 mg tablets,dose pack 4 mg PO DAILY Qty: 21 0RF Rx Instructions: Day 1: 24 mg on day 1 administered as 8 mg before breakfast, 4 mg after lunch, 4 mg after supper, and 8 mg at bedtime or 24 mg as a single dose or divided into 2 or 3 doses upon initiation. Day 2: 20 mg on day 2 administered as 4 mg before breakfast, 4 mg after lunch, 4 mg after supper, and 8 mg at bedtime. Day 3: 16 mg on day 3 administered as 4 mg before breakfast, 4 mg after lunch, 4 mg after supper, and 4 mg at bedtime. Day 4: 12 mg on day 4 administered as 4 mg before breakfast, 4 mg after lunch, and 4 mg at bedtime. Day 5: 8 mg on day 5 administered as 4 mg before breakfast and 4 mg at bedtime. Day 6: 4 mg on day 6 administered as 4 mg before breakfast. metaxalone 800 mg tablet 800 mg PO TID 7 Days Qty: 21 0RF atorvastatin 20 mg tablet 20 mg PO DAILY prazosin 1 mg capsule 1 mg PO QAM sertraline 100 mg tablet 200 mg PO DAILY hydroxyzine pamoate 50 mg capsule 50 mg PO BEDTIME PRN (Reason: insomnia) magnesium oxide 400 mg (241.3 mg magnesium) tablet PO mirtazapine 15 mg tablet 15 mg PO BEDTIME ergocalciferol (vitamin D2) 1,250 mcg (50,000 unit) capsule PO fluticasone propionate 50 mcg/actuation spray,suspension intranasal aripiprazole 2 mg tablet 2 mg PO DAILY Creon 24,000-76,000 -120,000 unit capsule,delayed release(DR/EC) PO buprenorphine-naloxone 4-1 mg film 1 film buccal Q24H Rx Instructions: place 1 strip/tab under (each) side of tongue Fiasp Penfill U-100 Insulin 100 unit/mL (3 mL) cartridge subcut meloxicam 15 mg tablet 15 mg PO DAILY Qty: 30 0RF Interventions: ED Discharge Assessment Last Done: 01/29/25 21:38 Discharge Date/Time: 01/29/25 21:39 Print Language: Mexican
[2025-01-29] MEDS: Sucralfate Oral Suspension 1 GM/10 ML ORAL.SUSP PO (20:31)
--- NOTE | 2025-01-29 21:34 | PC.NURSE ---
this RN notified by ore feeder who went into patients room and patient was not there. ivf noted to be infusing on the ground from iv catheter pt must have removed himself. catheter intact. pt only had 1 iv. Salina COLVIN notified.
[2025-01-29 21:38] VITALS: BP 117/74; PULSE 70; RESP 18; TEMP 36.7; O2SAT 96
== END 2025-01-29 21:39 | disposition left against medical advice (07) ==
PROVIDERS: Physician Assistant Medical; Emergency Provider Emergency Medicine; PCP Nurse Practitioner Family
DX: R10.9 Unspecified abdominal pain (principal); R11.2 Nausea with vomiting, unspecified; R19.7 Diarrhea, unspecified; E11.9 Type 2 diabetes mellitus without complications; Z79.4 Long term (current) use of insulin; Z98.890 Other specified postprocedural states
CPT/HCPCS: 36415; 80053; 81003; 83690; 85025; 96361; 96374; 99284; J1790

== ENCOUNTER 2025-02-07 14:43 | Outpatient (AMB) | payer OTHER, SELFPAY ==
[2025-02-07 14:54] VITALS: BP 122/80; PULSE 95; RESP 18; O2SAT 97; BMI 28.4
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
== END 2025-02-07 15:42 | disposition home or self-care (01) ==
LOC: HO.HMCH 14:44
PROVIDERS: Visit Provider Internal Medicine
DX: G90.A Postural orthostatic tachycardia syndrome [POTS] (principal); E11.9 Type 2 diabetes mellitus without complications; Z90.81 Acquired absence of spleen; F32.9 Major depressive disorder, single episode, unspecified; F43.10 Post-traumatic stress disorder, unspecified; E83.42 Hypomagnesemia

== ENCOUNTER → 2025-02-07 14:43 | Outpatient (BNVA) | payer OTHER, SELFPAY | PROVIDERS: Visit Provider Internal Medicine | DX: E11.9 Type 2 diabetes mellitus without complications (principal); K21.9 Gastro-esophageal reflux disease without esophagitis; F43.10 Post-traumatic stress disorder, unspecified; F41.9 Anxiety disorder, unspecified; F32.A Depression, unspecified; G47.00 Insomnia, unspecified; M81.0 Age-related osteoporosis without current pathological fracture; G90.A Postural orthostatic tachycardia syndrome [POTS]; F32.9 Major depressive disorder, single episode, unspecified; E83.42 Hypomagnesemia; Z90.81 Acquired absence of spleen; E89.1 Postprocedural hypoinsulinemia; Z90.410 Acquired total absence of pancreas | CPT/HCPCS: 96127; 99202 ==

== ENCOUNTER 2025-02-09 07:32 | Outpatient (REF) | payer OTHER, SELFPAY ==
[2025-02-09 08:10] LABS: Hematocrit 42.7 % (42.0-52.0); Hemoglobin 13.9 g/dl (14.0-18.0); Mean Corpuscular HGB Conc 32.6 g/dl (31.0-36.0); Mean Corpuscular Hemoglobin 30.6 pg (27.0-33.0); Mean Corpuscular Volume 94.1 fL (80.0-98.0); NRBC Abs Auto 0.000 X10*3/uL (0.0-0.012); NRBC Pct Auto 0.0 /100WBC (0.0-0.2); Platelet Count 184 X10*3/uL (160-400); Red Blood Count 4.54 X10*6/uL (4.60-5.80); White Blood Count 6.1 X10*3/uL (4.8-10.8)
[2025-02-09 08:21] LABS: Appearance Urine Clear; Glucose Urine UA Negative (Negative); PH 5.0 (5.0-9.0); Specific Gravity - Urine 1.020 (1.005-1.025); UMIC TRIGGER UA YES
[2025-02-09 09:06] LABS: Alanine Aminotransferase 66 U/L (0-40); Albumin Level 4.2 g/dL (3.5-5.0); Alkaline Phosphatase 83 U/L (39-117); Anion Gap 13 (12-20); Aspartate Amino Transferase 64 U/L (5-37); Blood Urea Nitrogen 9 mg/dL (9-16); Calcium 9.9 mg/dL (8.4-10.2); Carbon Dioxide 24 mmol/L (22-29); Chloride 108 mmol/L (96-108); Cholesterol 108 mg/dL (<200); Estimated Glomerular Filt Rate > 60; HDL Cholesterol 41 mg/dL (>40); Magnesium 1.9 mg/dL (1.6-2.6); Potassium 4.6 mmol/L (3.3-5.1); Sodium 140 mmol/L (135-145); Total Protein 6.9 g/dL (6.5-8.0); Triglycerides 84 mg/dL (<150)
[2025-02-09 09:20] LABS: HIV Num 1 0.07 S/CO (0.00-0.99); ~HepC Num1 0.10 S/CO (0.00-0.79); ~Hepatitis C Antibody Nonreactive (Nonreactive)
== END 2025-02-09 07:33 | disposition home or self-care (01) ==
LOC: HO.LAB 07:32
PROVIDERS: PCP Internal Medicine; Visit Provider Internal Medicine
DX: Z00.00 Encounter for general adult medical examination without abnormal findings (principal); Z11.4 Encounter for screening for human immunodeficiency virus [HIV]; Z11.59 Encounter for screening for other viral diseases; E83.42 Hypomagnesemia; Z13.29 Encounter for screening for other suspected endocrine disorder; Z13.1 Encounter for screening for diabetes mellitus; Z13.6 Encounter for screening for cardiovascular disorders; Z13.21 Encounter for screening for nutritional disorder
CPT/HCPCS: 36415; 80053; 80061; 81001; 82306; 83036; 83735; 84443; 85027; 86803; 87389

== ENCOUNTER 2025-03-08 08:36 | Outpatient (REF) | payer OTHER, SELFPAY ==
[2025-03-08 11:14] LABS: Appearance Urine Clear; Glucose Urine UA Negative (Negative); PH 5.5 (5.0-9.0); Specific Gravity - Urine 1.025 (1.005-1.025); UMIC TRIGGER UA YES
[2025-03-08 12:30] LABS: Alanine Aminotransferase 32 U/L (0-40); Albumin Level 4.3 g/dL (3.5-5.0); Alkaline Phosphatase 91 U/L (39-117); Anion Gap 11 (12-20); Aspartate Amino Transferase 37 U/L (5-37); Blood Urea Nitrogen 11 mg/dL (9-16); Calcium 9.7 mg/dL (8.4-10.2); Carbon Dioxide 23 mmol/L (22-29); Chloride 111 mmol/L (96-108); Estimated Glomerular Filt Rate > 60; Potassium 4.0 mmol/L (3.3-5.1); Sodium 141 mmol/L (135-145); Total Protein 7.2 g/dL (6.5-8.0)
[2025-03-08 12:39] LABS: Carcinoembryonic Antigen 2.60 ng/mL; Ferritin 54 ng/mL (20-250)
[2025-03-08 13:06] LABS: HBS Num1 0.00 mIU/mL (0-7.99); HBc Num1 0.05 S/CO (0.00-0.79); HBsAGNum1 0.34 S/CO (0.00-0.99); Hepatitis B Surface Antigen Negative (Negative); ~Hepatitis B Surface Antibody NONREACTIVE (Nonreactive)
[2025-03-09 11:03] LABS: Anti Nuclear Antibody Screen NEGATIVE (NEGATIVE)
== END 2025-03-08 08:37 | disposition home or self-care (01) ==
LOC: HO.LAB 08:36
PROVIDERS: PCP Internal Medicine; Visit Provider Internal Medicine
DX: R74.8 Abnormal levels of other serum enzymes (principal); E13.9 Other specified diabetes mellitus without complications; E89.1 Postprocedural hypoinsulinemia; Z90.81 Acquired absence of spleen; Z90.410 Acquired total absence of pancreas; R11.0 Nausea; R19.7 Diarrhea, unspecified; J98.8 Other specified respiratory disorders; R63.0 Anorexia; R63.4 Abnormal weight loss
CPT/HCPCS: 36415; 80053; 81001; 81003; 82103; 82105; 82378; 82390; 82728; 82784; 83615; 84446; 84590; 84597; 86015; 86038; 86301; 86364; 86381; 86704; 86706; 87340; 99212

== ENCOUNTER 2025-03-08 08:36 | Outpatient (AMB) | payer OTHER, SELFPAY ==
--- NOTE | 2025-03-08 08:40 | MHC.PC.OV ---
Vital Signs 03/08/25 08:41 Height 5 ft 9 in Weight 196 lb BMI 28.9 BP 118/68 Blood Pressure Location Lt brachial Position Sitting Respiration 20 Pulse 99 Pulse Source Pulse Oximeter Temp 99.2 F Temp Source Temporal Artery Scan Pulse Oximetry (%) 96 Oxygen Delivery Method Room Air Intake Visit Reasons: discuss alternative antibiotics Logistics Management Specialist Required: No Accompanied by: Spouse Allergies fluoxetine (From Prozac) Adverse Reaction (Verified 03/08/25 08:40) Stomach Upset varenicline (From Chantix) Adverse Reaction (Verified 03/08/25 08:40) Stomach Upset Medication List - Last Reconciled 03/08/25 by Jacque Temple MD aripiprazole 2 mg PO DAILY atorvastatin 20 mg PO DAILY cholecalciferol (vitamin D3) 100 mcg (2 x 50 mcg (2,000 unit)) PO DAILY ergocalciferol (vitamin D2) (Vitamin D2) 2,500 mcg PO QWEEK fluticasone propionate 50 mcg/actuation 2 sprays intranasal BID PRN hydroxyzine pamoate 50 mg PO BEDTIME PRN insulin aspart (B3) pump cart 100 unit/mL (1.6 mL) (Fiasp Pumpcart) 0 - 70 units subcut DAILY fcfpkz-uegycvnb-daatzrq (pork) 24,000-76,000 -120,000 unit (Creon) 2 caps PO TID magnesium oxide 400 mg PO BID mirtazapine 15 mg PO BEDTIME omeprazole 20 mg PO DAILY ondansetron 4 mg PO Q8H PRN prazosin 1 mg PO QAM prazosin 5 mg PO BEDTIME sertraline 200 mg PO DAILY Tobacco use date assessed: 02/07/25 Dental Screening Dental Screen Date: 03/08/25 Did you have a dental visit in the last 12 months?: Yes Did you have a dental problem in the last 6 months where you did not have access to dental care?: No Was dental information given to patient?: Patient has dentist HPI HPI Comments History of Present Illness Details The patient is a 45 year old male with PMH of PTSD, insomnia, MDD, POTS, type 1 diabetes 2/2 pnacreatectomy for chronic pancreatitis, splenectomy, GERD, presenting with a two-month history of diarrhea, nausea, severe abdominal and back pain, lightheadedness, congestion, loss of appetite, weight loss of 8 lbs and difficulty breathing. These symptoms occur daily, and he has experienced an 8-pound weight loss over the past month. His symptoms are described as making him miserable, causing him to constantly hold his abdomen in discomfort, and he often has to lehman to the bathroom immediately after eating. He has sought care at the emergency room three times and a walk-in clinic for these issues without resolution. Past treatments have included courses of antibiotics, such as Augmentin, and steroids, which provided no relief. His past surgical history is significant for a pancreatectomy, cholecystectomy, and splenectomy performed about 5 years ago. The current constellation of symptoms is new and has only developed over the past two months. He is up to date on his post-splenectomy vaccinations. [facility] Medical History (Updated 03/08/25 @ 10:21 by Jacque Temple MD) FH: cholecystectomy Osteoporosis Insomnia Depression Anxiety Type 1 diabetes PTSD (post-traumatic stress disorder) Surgical History (Updated 02/07/25 @ 15:32 by Jacque Temple MD) History of pancreatectomy Family History Brother Lung cancer Social History Housing: House Patient Tobacco Use Status: Former Tobacco user e-Cigarette/Vaping Use: Never Used Substance Use Type: Marijuana service: No Current occupational status: unemployed Cognitive needs: No Hearing needs: No Vision needs: No Questionnaire Thrive Questionnaire Date Thrive assessed: 02/07/25 MARTITA-7 AMB Questionnaire MARTITA-7 Date MARTITA - 7 assessed: 02/07/25 Source: Developed by Drs. Martin Beck, Yen Pfeiffer, Boogie De León and colleagues, with an educational chandra from [employer]. Review of Systems Const Details: As per HPI. Physical exam (Primary Care) Vital Signs: Last Vital Signs Temp 99.2 F 03/08/25 08:41 Pulse 99 03/08/25 08:41 Resp 20 03/08/25 08:41 BP 118/68 03/08/25 08:41 Pulse Ox 96 03/08/25 08:41 Oxygen Delivery Method Room Air 03/08/25 08:41 BMI result Body Mass Index 28.9 Tobacco/Smoking Status: Tobacco use Status Tobacco use date assessed 02/07/25 03/08/25 08:48 Patient Tobacco Use Status Former Tobacco user 03/08/25 08:48 e-Cigarette/Vaping Use Never Used 03/08/25 08:48 Thrive Assessment: Date of Thrive Assessment Date Thrive assessed 02/07/25 03/08/25 08:48 Const Other: Pertinent findings are in BOLD GENERAL APPEARANCE NAD, activity normal for age, well developed/ well nourished, no cyanosis, pallor, or diaphoresis. EYES lids/conjunctiva normal. EARS/NOSE/THROAT Mucous membranes moist, nares normal, lips/teeth normal uvula midline without oral pharyngeal erythema, exudate or swelling TMs normal bilaterally. No lymphangitis/lymphedema. HEAD/NECK normocephalic atraumatic, no facial trauma, neck is supple. RESPIRATORY respiratory effort normal, speaks in full sentences, no tripod position, no accessory muscle use. Lungs clear to auscultation without rhonchi, wheezes, rales CARDIAC Regular rate and rhythm, no edema. ABDOMINAL Soft, ND/NT. No evidence of fluid wave. No pulsatile masses on exam, rebound tenderness, Medel sign or pain over Mcburney's point. MUSCLES/EXTREMITIES No abnormal range of motion, no swelling. SKIN Warm, pink and dry. No rashes, dermatoses, petechiae or lesions. NEUROLOGICAL Speech is clear and appropriate. Normal level of consciousness. Gait and coordination are normal. 5/5 strength in all extremities. PSYCH Normal mood and affect. Judgement/competence is appropriate Coding Level of Care Code Est Pt Level 5 (15452) Diagnoses Nausea R11.0 Diarrhea R19.7 Congestion of upper airway J98.8 Loss of appetite R63.0 Weight loss R63.4 Time Spent (min) 50 Assessment & Plan Assessment & Plan (1) Nausea: Code(s): R11.0 - Nausea Category: Medical Plan: Same as under Diarrhea. (2) Diarrhea: Code(s): R19.7 - Diarrhea, unspecified Category: Medical Plan: - The patient's symptoms are believed to be related to his complex post-surgical state, specifically the absence of his pancreas, gallbladder, and spleen, with his body not adjusting well to these changes. - A comprehensive re-evaluation is warranted given the acute change in his condition over the past two months. - Pancreatic exocrine insufficiency is suspected to be a major contributor to his symptoms of nausea, diarrhea, abdominal pain, weight loss, and malabsorption of fat-soluble vitamins. - The plan involves a multi-specialist approach with referrals to both Gastroenterology and Endocrinology. - A STAT referral will be placed to a pancreas specialist, Dr. Casiano at [facility], and the patient is advised to verify insurance coverage. - The patient is also advised to see a local GI specialist if an earlier appointment becomes available. - Diagnostic workup will include a CT of the abdomen and pelvis with contrast, as well as an abdominal ultrasound, to reevaluate his anatomy. - Extensive lab work has been ordered, including a CMP to recheck liver enzymes, a CA 19-9 pancreas marker, CEA, AFP, and vitamin A, E, and K levels, in addition to a previously ordered comprehensive liver panel. - Complete ordered liver panel: Hep B surface Ab, Hep B core Ab, Hep B Ag, Hep C Ag/ AB, HIV, Smooth muscle Ab, Mitochondrial Ab, Alpha 1 antitrypsin, Immuglobulin G, Immunoglobulin M Ceruloplasmin, Ferritin, Iron panel, CORKY, Celiac panel. - The dose of Creon will be increased to 3 capsules before meals. - The patient was advised to limit his use of Tylenol to a maximum of 1.5 grams/day and ibuprofen to 600 mg/day until he is seen by a GI specialist. - He reports Zofran is helpful for his nausea. - The patient's diarrhea is likely secondary to pancreatic exocrine insufficiency. - Loperamide 2 mg was prescribed, to be taken up to four times daily as needed for diarrhea. - If loperamide is not effective, he may try Pepto-Bismol. (3) Congestion of upper airway: Code(s): J98.8 - Other specified respiratory disorders Category: Medical Plan: - The congestion is thought to be potentially due to allergies or environmental factors and less likely related to his primary GI condition. - The patient reports Flonase is not very effective. - Claritin 10 mg daily was prescribed. - The patient was advised that Claritin and hydroxyzine are similar medications and that it is better to avoid taking them together. (4) Loss of appetite: Code(s): R63.0 - Anorexia Category: Medical Plan: Same as under Diarrhea A/P. (5) Weight loss: Code(s): R63.4 - Abnormal weight loss Category: Medical Plan: Same as under Diarrhea A/P. We will evaluate for underlying malignancy with AFP, CEA, CA19-9. CT abdomen with contrast ordered. Plan I discussed with the patient and his partner that his current symptoms are complex, likely stemming from his body's difficulty adjusting to the absence of his pancreas, spleen, and gallbladder. I explained the need for a multi-specialist approach, emphasizing the crucial role of Gastroenterology and Endocrinology in his care, particularly due to the dual digestive and endocrine functions of the pancreas. I informed him of my plan to place a STAT referral to Dr. Casiano, a pancreas specialist at [facility], and also encouraged him to accept an earlier appointment with our local GI team if one becomes available. We discussed the importance of him verifying his insurance coverage for this referral. I outlined the diagnostic plan, which includes a CT scan of the abdomen and pelvis with contrast and a comprehensive set of blood tests, including a pancreas marker (CA 19-9) and vitamin levels, to be completed as soon as possible. I explained that these tests are intended to gather necessary information before his specialist appointment. We discussed medication changes, including increasing the dose of Creon, and adding Claritin for congestion and loperamide for diarrhea. I also provided guidance on the cautious use of lpja-odc-gxmyvqi pain relievers like Tylenol and ibuprofen, given his underlying conditions. I scheduled a follow-up in four weeks and encouraged him to use the patient portal for communication in the interim. Orders: Orders Carbohydrate Antigen 19-9 Today E13.9 - Other specified diabetes mellitus without complications, E89.1 - Postprocedural hypoinsulinemia, R11.0 - Nausea, R19.7 - Diarrhea, unspecified, R74.8 - Abnormal levels of other serum enzymes, Z90.410 - Acquired total absence of pancreas, Z90.81 - Acquired absence of spleen Vitamin K1 Today E13.9 - Other specified diabetes mellitus without complications, E89.1 - Postprocedural hypoinsulinemia, Z90.410 - Acquired total absence of pancreas CT abdomen pelvis w IV con Today E13.9 - Other specified diabetes mellitus without complications, E89.1 - Postprocedural hypoinsulinemia, R11.0 - Nausea, R19.7 - Diarrhea, unspecified, R74.8 - Abnormal levels of other serum enzymes, Z90.410 - Acquired total absence of pancreas, Z90.81 - Acquired absence of spleen AFP Quad Screen Today E13.9 - Other specified diabetes mellitus without complications, E89.1 - Postprocedural hypoinsulinemia, R11.0 - Nausea, R19.7 - Diarrhea, unspecified, R74.8 - Abnormal levels of other serum enzymes, Z90.410 - Acquired total absence of pancreas, Z90.81 - Acquired absence of spleen Carcinoembryonic Antigen Today E13.9 - Other specified diabetes mellitus without complications, E89.1 - Postprocedural hypoinsulinemia, R11.0 - Nausea, R19.7 - Diarrhea, unspecified, R74.8 - Abnormal levels of other serum enzymes, Z90.410 - Acquired total absence of pancreas, Z90.81 - Acquired absence of spleen Lactate Dehydrogenase Today E13.9 - Other specified diabetes mellitus without complications, E89.1 - Postprocedural hypoinsulinemia, R11.0 - Nausea, R19.7 - Diarrhea, unspecified, R74.8 - Abnormal levels of other serum enzymes, Z90.410 - Acquired total absence of pancreas, Z90.81 - Acquired absence of spleen Comprehensive Met. Panel Today E13.9 - Other specified diabetes mellitus without complications, E89.1 - Postprocedural hypoinsulinemia, R11.0 - Nausea, R19.7 - Diarrhea, unspecified, R74.8 - Abnormal levels of other serum enzymes, Z90.410 - Acquired total absence of pancreas, Z90.81 - Acquired absence of spleen Vitamin A Today E13.9 - Other specified diabetes mellitus without complications, E89.1 - Postprocedural hypoinsulinemia, Z90.410 - Acquired total absence of pancreas Vitamin E Today E13.9 - Other specified diabetes mellitus without complications, E89.1 - Postprocedural hypoinsulinemia, Z90.410 - Acquired total absence of pancreas US abdomen comp w elastography Today E13.9 - Other specified diabetes mellitus without complications, E89.1 - Postprocedural hypoinsulinemia, R11.0 - Nausea, R19.7 - Diarrhea, unspecified, R74.8 - Abnormal levels of other serum enzymes, Z90.410 - Acquired total absence of pancreas, Z90.81 - Acquired absence of spleen Referrals Gastroenterology Referral R74.8 - Abnormal levels of other serum enzymes, Z90.81 - Acquired absence of spleen Medications: New loratadine (Claritin) 10 mg PO DAILY PRN 30 tabs 3RF allergy symptoms loperamide (Anti-Diarrheal (loperamide)) 2 mg PO Q6H PRN 30 tabs 3RF loose stool bismuth subsalicylate (Pepto-Bismol) 2 tabs PO QID 60 tabs 0RF 14 days Changed From fioojk-zoldhvqn-mwsxgfj (pork) 24,000-76,000 -120,000 unit (Creon) Before every meal 2 caps PO TID 360 caps 3RF To houaop-umsdnpzu-kllyrvi (pork) 24,000-76,000 -120,000 unit (Creon) Before every meal 3 caps PO TID 360 caps 3RF
[2025-03-08 08:41] VITALS: BP 118/68; PULSE 99; RESP 20; TEMP 37.3; O2SAT 96; BMI 28.9
== END 2025-03-08 09:34 | disposition home or self-care (01) ==
PROVIDERS: PCP Internal Medicine; Visit Provider Internal Medicine
DX: R11.0 Nausea (principal); R19.7 Diarrhea, unspecified; J98.8 Other specified respiratory disorders; R63.0 Anorexia; R63.4 Abnormal weight loss